=== PATIENT | male | born 1975 | race Caucasian/White ===

== ENCOUNTER 2020-03-22 13:47 | Emergency (ER) | payer BC, OTHER, SELFPAY ==
[2020-03-22 13:54] VITALS: BP 144/84; PULSE 108; RESP 18; TEMP 36.7; O2SAT 97
--- NOTE | 2020-03-22 14:23 | ED.BACK ---
HPI - Back Pain/Injury General Chief Complaint: Back Pain/Injury Stated Complaint: low back pain Time Seen by Provider: 03/22/20 14:19 Source: RN notes reviewed History of Present Illness HPI Narrative: Patient presents emergency department from home for back pain. Patient states that 2 days ago he was lifting sheets of plywood. He states that he noted mild back pain progressively worsened while he was lifting the sheets of plywood. He denies any direct trauma or injury. States that since that time he is had progressively worsening pain in the bilateral lower back with radiation to the bilateral legs. He denies any fever chills abdominal pain numbness or tingling in the extremities bowel or bladder incontinence or any other symptoms. Last took naproxen this morning for the symptoms at 5 AM this morning. Patient states he does have a history of low back pain Related Data Allergies Allergy/AdvReac Type Severity Reaction Status Date / Time No Known Allergies Allergy Verified 03/22/20 13:57 Review of Systems Review of Systems: Narrative: Gen.: Denies fevers or chills ENT: Denies congestion Respiratory: Denies shortness of breath or cough CV: Denies chest pain or palpitations GI: Denies abdominal pain nausea, emesis or diarrhea denies incontinence Musculoskeletal: See HPI Neuro: Denies numbness, tingling, weakness or focal weakness Skin: Denies rash Except as documented, all other systems reviewed and negative [facility] Past Medical History Medical History (Updated 03/22/20 @ 14:25 by Kenny Barrera DO) Depression Social History Social History (Updated 03/22/20 @ 14:25 by Kenny Barrera DO) Smoking packs per day: 1 Smoking cigarettes per day: 20.0 Exam Narrative: Exam Narrative: APPEARANCE: No acute distress, nontoxic, resting in bed Eyes: EOMI HEENT: Normocephalic, atraumatic, CV: Regular rate and rhythm without murmur RESPIRATORY: No respiratory distress. Clear to auscultation bilaterally. Abdomen: Soft and nontender, no rebound or guarding MUSCULOSKELETAl: Moves all extremities, no clubbing cyanosis or edema Back: No midline lumbar tenderness to palpation or step-off, tender to palpation over bilateral paravertebral muscles L3-5 , pain increased with forward flexion NEURO: Awake and alert. Following commands, speech normal, no focal deficits, muscle strength 5 out of 5 bilateral lower extremities, bilateral patellar reflex 2+ SKIN:: Warm, dry. Normal Color no rash or lesions Course Course Emergency Course: Discussed with patient results of workup and diagnosis. Discussed need for follow-up with primary care, proper use of medication, and reasons to return to the emergency department. Patient understands and agrees to current treatment plan Vital Signs Vital signs: Vital Signs Temperature 98.1 F 03/22/20 13:54 Pulse Rate 108 H 03/22/20 13:54 Respiratory Rate 18 03/22/20 13:54 Blood Pressure 144/84 H 03/22/20 13:54 Pulse Oximetry 97 03/22/20 13:54 Temperature 98.1 F 03/22/20 13:54 Pulse Rate 108 H 03/22/20 13:54 Respiratory Rate 18 03/22/20 13:54 Blood Pressure 144/84 H 03/22/20 13:54 Pulse Oximetry 97 03/22/20 13:54 MDM - Back Pain/Injury MDM Narrative Medical decision making narrative: Patient?s pain is positional and localized to back without signs of cord compression or cauda equina. Normal nuerologic exams. No fever noted and no significant risk factors for osteomyelitis or spinal epidural abscess. No symptoms or signs to suggest pain is referred from abdominal or source. There are no pulsatile masses to exam. Patient ambulates with a steady gait and is felt to be up reasonable candidate for continued outpatient management Discharge Plan Discharge Clinical Impression: Low back pain Patient Disposition: Home, Self-Care Condition: Stable Instructions: Antibiotic Form, Acute Low Back Pain (ED) Additional Instructions: Return for increasing
[2020-03-22] MEDS: CYCLOBENZAPRINE HCL 10 MG TABLET PO (14:32)
[2020-03-22 14:46] VITALS: BP 136/92; PULSE 90; RESP 18; TEMP 36.6; O2SAT 98
== END 2020-03-22 14:48 | disposition home or self-care (01) ==
LOC: ANHED 14:35
PROVIDERS: Emergency Provider Emergency Medicine; PCP Nurse Practitioner Family
DX: M54.5 Low back pain (principal); F17.210 Nicotine dependence, cigarettes, uncomplicated
CPT/HCPCS: 99283; A9270

== ENCOUNTER 2020-11-01 19:56 | Emergency (ER) | payer BC, MEDICAID, SELFPAY ==
[2020-11-01 19:58] VITALS: BP 150/76; PULSE 77; RESP 20; TEMP 37; O2SAT 99
--- NOTE | 2020-11-01 22:30 | ED.BACK ---
HPI - Back Pain/Injury General Chief Complaint: Back Pain/Injury Stated Complaint: back pain Time Seen by Provider: 11/01/20 22:25 Source: patient Mode of arrival: ambulatory Limitations: no limitations History of Present Illness HPI Narrative: Patient is a 45-year-old male complaining of left lower back pain rating to his right lower extremity, 8 out of 10, sharp, worse with palpation and movement, started approximately 1 and 1/2 to 2 weeks ago. Patient admits to bending and lifting heavy objects at work. Denies any injury. Patient states that he has a history of back pain. Patient denies any chest pain, shortness of breath, abdominal pain, nausea, vomiting, diaphoresis, fever, chills, weakness, or incontinence. Related Data Allergies Allergy/AdvReac Type Severity Reaction Status Date / Time No Known Allergies Allergy Verified 03/22/20 13:57 Review of Systems Review of Systems: All systems reviewed & are unremarkable except as noted in HPI and below Constitutional: Constitutional: Denies body ache(s), Denies chills, Denies excessive sweating, Denies fatigue, Denies fever(s), Denies headache(s), Denies lethargy, Denies malaise, Denies weakness and Denies weight loss Eyes: Eyes: Denies blurry vision, Denies change in vision and Denies loss of vision ENT: Denies dizziness, Denies ear discharge, Denies headache(s), Denies lip swelling, Denies epistaxis, Denies nasal congestion, Denies neck pain, Denies throat swelling and Denies tongue swelling Cardiovascular: Cardiovascular: Denies chest pain, Denies chest pain at rest, Denies chest pain with activity, Denies diaphoresis, Denies rapid heart rate, Denies edema, Denies irregular heart rhythm, Denies lightheadedness, Denies palpitations, Denies dyspnea and Denies dyspnea on exertion Respiratory: Respiratory: Denies chest congestion, Denies cough, Denies hemoptysis, Denies dyspnea and Denies dyspnea on exertion Gastrointestinal: Gastrointestinal: Denies abdominal pain, Denies melena, Denies hematochezia, Denies diarrhea, Denies nausea, Denies vomiting and Denies hematemesis Musculoskeletal: Musculoskeletal: Denies abnormal gait, Denies deformity, Denies joint swelling, Denies limited range of motion, Denies neck pain and Denies numbness Neurologic: Denies Abnormal speech present, Denies abnormal gait, Denies confusion, Denies dizziness, Denies headache(s), Denies focal weakness, Denies loss of vision, Denies numbness, Denies Other visual disturbances, Denies Sensory deficit (Neuro) and Denies weakness Psychiatric: Psychiatric: Denies confusion, Denies depression, Denies auditory hallucinations, Denies homicidal ideation and Denies suicidal ideation Endocrine: Endocrine: Denies cold intolerance, Denies excessive sweating, Denies fatigue, Denies heat intolerance and Denies palpitations Hematologic/Lymphatic: Hematologic/Lymphatic: Denies easy bleeding and Denies easy bruising Allergic/Immunologic: Allergic/Immunologic: Denies lip swelling, Denies throat swelling and Denies tongue swelling PMFSH Past Medical History Medical History Depression Social History Social History Smoking packs per day: 1 Smoking cigarettes per day: 20.0 Comments Past medical history: None Family history noncontributory Social history: No EtOH or drug use Exam Const: General: cooperative, healthy appearing, comfortable, no acute distress, well developed, alert and awake; No confusion Orientation/consciousness: oriented to person, oriented to place, oriented to time, patient oriented x3 and No confusion Limitations: no limitations HENMT: Head: normal to inspection, normocephalic and atraumatic Ears: hearing grossly normal bilaterally, TM normal on the right and TM normal on the left General nose exam: Normal external nose present, Normal nares present and No nasal discharge present Face an
[2020-11-01] MEDS: HYDROcodone/acetaminophen (*CRX) 5-325 MG TABLET 1 TAB PO (22:42)
[2020-11-01] MEDS: methylPREDNISolone SOD SUCC 125 MG VIAL 60 MG IM (22:42)
[2020-11-01] MEDS: CYCLOBENZAPRINE HCL 10 MG TABLET PO (22:42)
[2020-11-01] MEDS: KETOROLAC 30 MG/ML VIAL (*BKC) IM (22:42)
[2020-11-01 23:43] VITALS: BP 142/85; PULSE 78; RESP 18; TEMP 36.4; O2SAT 98
== END 2020-11-01 23:44 | disposition home or self-care (01) ==
LOC: ANHED 22:38
PROVIDERS: Emergency Provider Emergency Medicine; PCP Nurse Practitioner Family
DX: M54.42 Lumbago with sciatica, left side (principal); F17.210 Nicotine dependence, cigarettes, uncomplicated
CPT/HCPCS: 96372; 99284; A9270; J1885; J2930

== ENCOUNTER 2023-12-03 18:01 | Emergency (ER) | payer BC, SELFPAY ==
[2023-12-03 18:02] VITALS: BP 150/82; PULSE 119; RESP 18; TEMP 36.5; O2SAT 100
--- NOTE | 2023-12-03 18:11 | ED.BACK ---
HPI - Back Pain/Injury General Chief Complaint: Back Pain/Injury Stated Complaint: lower back pain Time Seen by Provider: 12/03/23 18:11 Source: patient Mode of arrival: ambulatory Limitations: no limitations History of Present Illness HPI Narrative: Jhony is a 48-year-old male patient presenting to the ER today with complaints of right-sided low back pain with radiation of pain in his right anterior thigh. He reports this has been going on for a few days now. Was seen at the [facility] urgent [facility] and given a shot of steroid and given prescription for muscle relaxers. Is needing a work note for today. Rates the pain currently an 8/10. States the pain is over the right low back/SI joint. Related Data Allergies Allergy/AdvReac Type Severity Reaction Status Date / Time No Known Allergies Allergy Verified 03/22/20 13:57 Review of Systems Review of Systems: Pertinent positives per HPI. Patient denies any fever, chills, rash, headache, visual changes, dizziness, cough, runny nose, sore throat, shortness of breath, chest pain, palpitations, nausea, vomiting, diarrhea, constipation, abdominal pain, or any urinary issues. [facility] Past Medical History Medical History Depression Social History Social History Smoking packs per day: 1 Smoking cigarettes per day: 20.0 Comments At the time of my signature, I reviewed and agree with the nursing past medical, surgical, social, and family history. There is no relevant family history pertinent to the patient complaint. Exam Narrative: General: Well-developed, well nourished, in no apparent distress Head: Normocephalic, atraumatic. Cardio: Regular rate and rhythm, s1 and s2 normal, no murmur appreciated. Resp: Clear to auscultation bilaterally, no rhonchi, rales, wheezing or rubs. Musculoskeletal: No deformity, tender to palpation over the right sided lumbar spine and right SI joint, pain with raising right leg, positive straight leg test of the right leg at approximately 60 ?, negative foot drop, patellar reflex 2+, grossly normal range of motion, muscle strength strong and equal, peripheral pulse strong, no edema, no cyanosis, antalgia gait and station Course Course Emergency Course: Portions of this record may have been created with voice recognition software. Vital Signs Vital signs: Vital Signs Temperature 36.5 C 12/03/23 18:02 Pulse Rate 119 H 12/03/23 18:02 Respiratory Rate 18 12/03/23 18:02 Blood Pressure 150/82 H 12/03/23 18:02 Pulse Oximetry 100 12/03/23 18:02 Oxygen Delivery Room Air 12/03/23 18:02 Temperature 36.5 C 12/03/23 18:02 Pulse Rate 119 H 12/03/23 18:02 Respiratory Rate 18 12/03/23 18:02 Blood Pressure 150/82 H 12/03/23 18:02 Pulse Oximetry 100 12/03/23 18:02 Oxygen Delivery Room Air 12/03/23 18:02 Vital signs reviewed MDM - Back Pain/Injury MDM Narrative Medical decision making narrative: At the time of visit patient is resting comfortably on the exam table. Patient appears to be nontoxic. Plan: I suspect patient has low back pain with right sciatica. Prescription for Medrol Dosepak was sent to the pharmacy and patient can continue taking the Flexeril. Work note was given. Supportive measures were discussed with the patient and they voiced understanding discharge instructions and agrees to treatment plan. Return precautions reviewed Differential Diagnosis Differential diagnosis: Likely lumbar radiculopathy, sciatica, strain of lumbar region, discitis and other (SI joint dysfunction) Discharge Plan Discharge Clinical Impression: Acute right-sided low back pain with sciatica Qualifiers: Sciatica laterality: sciatica of right side Qualified Code(s): M54.41 - Lumbago with sciatica, right side Patient Disposition: Home, Self-Care Condition: Stable Instructions: Antibi
[2023-12-03] MEDS: KETOROLAC (*BKC) 60 MG/2 ML VIAL IM (18:16)
== END 2023-12-03 18:36 | disposition home or self-care (01) ==
PROVIDERS: Emergency Provider Nurse Practitioner Family
DX: M54.41 Lumbago with sciatica, right side (principal); F17.210 Nicotine dependence, cigarettes, uncomplicated
CPT/HCPCS: 96372; 99283; J1885

== ENCOUNTER 2025-05-02 01:42 | Day surgery (SDC) | payer BC, SELFPAY ==
[2025-04-26 09:25] VITALS: BMI 35.6
--- OUTSIDE RECORDS SUMMARY | 2025-05-02 01:45 | XMS_ITS | Patient Health Record ---
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 Screening reviewed and consent signed. Patient tolerated well. COVID-19 Moderna 2nd IM Intramuscular 11/07/2020 Administered Plan Of Treatment No Information Insurance Providers Payer Name Payer Address Payer Phone Subscriber Number Group Number Insured Name Patient Relationship to Insured Coverage Start Date Coverage End Date [facility] [address] [place] [address] [id number] Jhony Marinelli Self - patient is the insured 1
[2025-05-02 09:41] VITALS: BP 156/82; PULSE 92; RESP 20; TEMP 36.3; O2SAT 97
[2025-05-02] MEDS: LACTATED RINGERS 1,000 ML 150 ML IV CONT (09:53)
--- NOTE | 2025-05-02 10:02 | WPDANESEPPF ---
Anes - Initial Pre Proc Eval Procedure: Operation Date: 05/02/25 11:00 Proposed Procedures p Diagnostic Colonoscopy - Slim Estrada MD Date/Time: 05/02/25 10:02 Surgeon: Slim Estrada MD Pre Op Diagnosis: Diarrhea, unspecified Patient Data Age: 50 Gender: M Height: 1.83 m Weight: 116.4 kg Last Vital Signs Temp 36.3 C L 05/02/25 09:41 Pulse 92 05/02/25 09:41 Resp 20 05/02/25 09:41 BP 156/82 H 05/02/25 09:41 Pulse Ox 97 05/02/25 09:41 O2 Del Method Room Air 05/02/25 09:41 Allergies Allergy/AdvReac Type Severity Reaction Status Date / Time No Known Allergies Allergy Verified 05/02/25 09:40 Home Medications ?Medication ?Instructions ?Recorded ?Confirmed ?Type ibuprofen 600 mg tablet (IBU) 600 mg PO Q6H PRN pain #20 tabs 03/22/20 04/26/25 Rx Patient hx anesthesia problems: none Family hx anesthesia problems: none Results Review: All pre-operative results and documents have been reviewed as part of the pre-operative evaluation. [facility] Past Medical History Medical History (Updated 02/12/25 @ 15:52 by MAURY Slaughter) Tobacco use HLD (hyperlipidemia) Obesity (BMI 30-39.9) Alcohol use Family history of celiac disease Elevated LFTs Fatty liver Diarrhea Encounter for screening colonoscopy Depression Social History Social History (Updated 05/02/25 @ 10:10 by Arnold Amos DO) Smoking packs per day: 1 Smoking cigarettes per day: 20.0 Years smoked: 30 Smoking pack-years: 30.00 Smoking status: Current every day smoker Tobacco type: cigarettes Alcohol intake: current Alcohol use details: 6 beer/day Substance use type: does not use Anes - Eval Final PreProcedure Day of Procedure 05/02/25 10:02 Patient weight: obese Heart: regular rate and rhythm Lungs: clear to auscultation Airway: Mallampati scale class II Neurological: alert and oriented Last oral intake: >/= 8 hours ASA classification: III Emergent: no Anesthetic plan: proceed Anesthesia type and monitoring: general GIVS and standard monitoring Results Review: All pre-operative results and documents have been reviewed as part of the pre-operative evaluation. Informed Consent: The patient's anesthetic plan and its attendant risks and benefits were discussed with the patient/family/POA. Questions were solicited and answers provided to the satisfaction of the patient/family/POA.
--- NOTE | 2025-05-02 10:34 | P.HP_ITS ---
History of Present Illness History of Present Illness Consent: Risks, benefits, and alternatives have been discussed and questions answered. Patient agrees to proceed with procedure. Chief complaint: Diarrhea, unspecified Narrative: Jhony Marinelli is a 50 year old male here for first colonoscopy, also history of loose stool Review of Systems Review of Systems: All systems reviewed & are unremarkable except as noted in HPI and below PMFSH Past Medical History Medical History (Updated 02/12/25 @ 15:52 by LUKAS SlaughterN-C) Tobacco use HLD (hyperlipidemia) Obesity (BMI 30-39.9) Alcohol use Family history of celiac disease Elevated LFTs Fatty liver Diarrhea Encounter for screening colonoscopy Depression Social History Social History (Updated 05/02/25 @ 10:10 by Arnold Amos, ) Smoking packs per day: 1 Smoking cigarettes per day: 20.0 Years smoked: 30 Smoking pack-years: 30.00 Smoking status: Current every day smoker Tobacco type: cigarettes Alcohol intake: current Alcohol use details: 6 beer/day Substance use type: does not use Meds Home Medications and Allergies Home Medications ?Medication ?Instructions ?Recorded ?Confirmed ?Type ibuprofen 600 mg tablet (IBU) 600 mg PO Q6H PRN pain # 20 tabs 03/22/20 04/26/25 Rx Allergies Allergy/AdvReac Type Severity Reaction Status Date / Time No Known Allergies Allergy Verified 05/02/25 09:40 Vital Signs Vital Signs - 24 hr 05/02/25 09:41 Temperature 97.4 F L Pulse Rate 92 Respiratory Rate 20 Blood Pressure 156/82 H Pulse Oximetry 97 Oxygen Delivery Room Air Exam Const: General: comfortable and no acute distress HENMT: Face/Nose/Sinus: Normal nares present Eyes: General: appearance normal, both eyes and all related structures Neck: Neck: no JVD Resp: Auscultation: clear to auscultation bilaterally Cardio: Rate: regular rate Rhythm: regular rhythm GI: Inspection: non-distended GI Palp: Yes Soft to palpation Skin: General skin exam: normal color Neuro: Speech: normal speech Extrem: General: normal to inspection Psych: Mental Status: mental status grossly normal Assessment and Plan Assessment and plan (1) Diarrhea: Code(s): R19.7 - Diarrhea, unspecified Status: Acute (2) Encounter for screening colonoscopy: Code(s): Z12.11 - Encounter for screening for malignant neoplasm of colon Status: Acute Assessment and Plan: colonoscopy
--- NOTE | 2025-05-02 10:37 | S_PTH ---
PATIENT: Jhony Marinelli LOC: [facility]#:[id number] AGE/SX: 50/M ROOM: RE05/02/[address]: Slim Estrada MD : 1975 BED: DIS: 05/02/2025 SPEC #: [id number] RECD: 05/02/25 10:52 STATUS: FAVIOLA REArabella #: [id number] ANURAG: 05/02/25 10:[address]: Slim Estrada DEPT: [facility] Surgical RECD BY: Jane Freire ENTERED: 05/02/25 10:52 SP TYPE: Surgical OTHR DR: Elier TranMD Tissues: A - Colon Biopsy B - Colon Polypectomy Procedures: Hematoxylin and Eosin Stain Gross and Microscopic Level 4
[2025-05-02 10:47] VITALS: BP 133/79; PULSE 87; RESP 21; O2SAT 95
[2025-05-02 10:57] VITALS: PULSE 80; RESP 18; O2SAT 98
== END 2025-05-02 11:10 | disposition home or self-care (01) ==
PROVIDERS: PCP Internal Medicine; Referring Provider Nurse Practitioner Family; Visit Provider Internal Medicine Gastroenterology
PROC: 0DJD8ZZ Inspection of Lower Intestinal Tract, Via Natural or Artificial Opening Endoscopic (ICD-10-PCS; CPT 45378; principal; 2025-05-02 11:00)
DX: R19.7 Diarrhea, unspecified (principal); D12.4 Benign neoplasm of descending colon; K57.30 Diverticulosis of large intestine without perforation or abscess without bleeding; K64.8 Other hemorrhoids; F17.210 Nicotine dependence, cigarettes, uncomplicated; E66.9 Obesity, unspecified; Z68.34 Body mass index [BMI] 34.0-34.9, adult
CPT/HCPCS: 45385; 45380; 88305; J2704; J7120

== ENCOUNTER 2025-08-28 00:39 | Emergency (ER) | payer BC, SELFPAY ==
[2025-08-28] VITALS (9 sets, daily range): BP systolic 137–201; BP diastolic 80–99; PULSE 105–118; RESP 17–23; TEMP 37.1–37.4; O2SAT 93–97
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
--- OUTSIDE RECORDS SUMMARY | 2025-08-28 00:42 | XMS_ITS | Patient Health Record ---
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 Screening reviewed and consent signed. Patient tolerated well. Social History Sex Observation Social History Observation Description Sex Observation Male Plan Of Treatment No Information Insurance Providers Payer Name Payer Address Payer Phone Subscriber Number Group Number Insured Name Patient Relationship to Insured Coverage Start Date Coverage End Date [facility] [address] [place] [address] [id number] Jhony Marinelli Self - patient is the insured
--- OUTSIDE RECORDS SUMMARY | 2025-08-28 00:42 | XMS_ITS | Data Portability ---
Author Organization [facility], Main Office Address [address] [place] [address] Assessment No assessment recorded. Plan of Treatment Reminders Order Date Submit Date Provider Last Modified By Organization Details Last Modified Time Details Appointments None recorded. Lab testosteron e, free + total, serum 2022 023 [facility] (Lab), [address] [place], [address], 3 09:52:30 PSA, serum or plasma 2022 023 [facility] (Lab), [address] [place], [address], 3 05:05:32 CMP, serum or plasma [address] (Lab), [address] [place], [address], 3 09:04:47 testosteron e, free + total, serum [address] (Lab), [address] [place], [address], 3 09:04:29 vitamin B12 + folate, serum or blood [address] (Lab), [address] [place], [address], 3 09:04:29 magnesium, serum or plasma 2022 023 [email or web address] [facility] (Lab), [address] [place], [address], 3 09:04:29 vitamin D, 25-hydroxy, total, serum 2022 023 [email or web address] [facility] (Lab), [address] [place], [address], 3 09:04:29 CBC 2022 023 [email or web address] [facility] (Lab), [address] [place], [address], 3 09:04:30 HbA1c (hemoglobin A1c), blood 2022 023 [email or web address] [facility] (Lab), [address] [place], [address], 3 08:07:42 lipid panel, serum [email or web address] (Lab), [address] [place], [address], 3 17:28:54 TSH, serum or plasma [email or web address] [place] [address] (Lab), [address] [place], [address], 3 17:29:08 CBC [email or web address] [place] [address] (Lab), [address] [place], [address], 3 17:29:26 CMP, serum or plasma [email or web address] [place] [address] (Lab), [address] [place], [address], 3 17:29:39 Referral sleep medicine referral 2022 023 [email or web address] 3 Severino Lambert MD, [address] [place], [address], 3 10:22:47 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 Thank you 2022 023 GILLIAN Plunkett DPM, [address] [facility], [place], [address], 3 12:18:24 Procedures None recorded. Surgeries None recorded. Imaging None recorded. Medication Orders cholecalcif chely (vitamin D3) 1,250 mcg (50,000 unit) capsule 2022 023 [facility] #13883, [address] [facility], [place], [place], [id number], 3 16:28:45 varenicline tartrate 0.5 mg (11)-1 mg (42) tablets in a dose pack 2022 023 [facility] #85868, [address], [place], [place], [id number], 3 14:39:42 prednisone 20 mg tablet [address] [place] [address] [facility] #67024, [address], [place], [place], [id number], 3 16:10:29 meloxicam 15 mg tablet 2022 023 [facility] #10725, [address] , [place], [place], [id number], 3 16:33:58 prednisone 20 mg tablet 2022 [email or web address] [place] [address] [id number], [address], [place], [place], [id number], 16:10:29 Patient TargetsNo targets recorded. 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 Thank you Referring Physician: Cirilo Walker [facility], Encounter Date: 11/24/2022 Sleep Medicine Referral for Snoring Referring Physician: Cirilo Walker [facility], Encounter Date: 04/07/2023 Results Created Date Observation Date Name Description Value Unit Range Abnormal Flag Note LastModifiedBy Organization Detail LastModifiedTime 11/25/1911/24/2022 CBC W/O DIFFE RENTI AL white blood cells 7.3 x10'3 /uL 4.2-10 .8 Not Available [facility] (Lab) [address] [place], [address], 11/24/2022 20:24:04 11/25/19 23 11/24/2022 CBC W/O DIFFE RENTI AL red blood cells 5.28 x10'6 /uL 4.10-5 .80 Not Available [facility] (Lab) [address] [place], [address], 11/24/2022 20:24:04 11/25/19 23 11/24/2022 CBC W/O DIFFE RENTI AL hemoglobin 17.2 g/dL 13.2-1 7.0 high Not Available [facility] (Lab) [address] [place], [address], 11/24/2022 20:24:04 11/25/19 23 11/24/2022 CBC W/O DIFFE RENTI AL hematocrit 50.2 % 39.3-5 0.0 high Not Available [facility] (Lab) [address] [place], [address], 11/24/2022 20:24:04 11/25/19 23 11/24/2022 CBC W/O DIFFE RENTI AL mean red cell volume 95.1 fL 80.0-9 7.0 Not Available [facility] (Lab) [address] [place], [address], 11/24/2022 20:24:04 11/25/19 23 11/24/2022 CBC W/O DIFFE RENTI AL mean red cell hemoglobin 32.6 pg 27.0-3 3.0 Not Available [facility] (Lab) [address] [place], [address], 11/24/2022 20:24:04 11/25/19 23 11/24/2022 CBC W/O DIFFE RENTI AL mean RBC HGB concentratio n 34.3 g/dL 31.0-3 6.0 Not Available [facility] (Lab) [address] [place], [address], 11/24/2022 20:24:04 11/25/19 23 11/24/2022 CBC W/O DIFFE RENTI AL red cell distribution width 13.0 % 11.8-1 5.5 Not Available [facility] (Lab) [address] [place], [address], 11/24/2022 20:24:04 11/25/19 23 11/24/2022 CBC W/O DIFFE RENTI AL platelets 196 x10'3 /uL 150-40 0 Not Available [facility] (Lab) [address] [place], [address], 11/24/2022 20:24:04 11/25/19 23 11/24/2022 CBC W/O DIFFE RENTI AL mean platelet volume 10.7 fL 9.0-12 .4 Not Available [facility] (Lab) [address] [place], [address], 11/24/2022 20:24:04 11/25/19 23 11/24/2022 LIPID PANEL cholesterol 220 mg/dL 140-19 9 high NIH DENISSE NSUS RECOM MENDA TION FOR TINO STERO L: ADULT CHILD LOW RISK: <200 <170 BORDE RLINE : <200- 239 ----- HIGH RISK: >240 >200 Not Available [facility] (Lab) [address] [place], [address], 11/24/2022 20:57:15 11/25/19 23 11/24/2022 LIPID PANEL triglyceride s 362 mg/dL 0-150 high NIH DENISSE NSUS REPOR T RECOM MENDA TION FOR TRIGL YCERI EBEN: ADULT CHILD LOW RISK: <150 ----- BODER LINE: 150-1 99 ----- HIGH RISK: >200 ----- Not Available [facility] (Lab) [address] [place] [address], [address], 11/24/2022 20:57:15 11/25/19 23 11/24/2022 LIPID PANEL HDL cholesterol 35 mg/dL 40- low Not Available [facility] (Lab) [address] [place] [address], [address], 11/24/2022 20:57:15 11/25/19 23 11/24/2022 LIPID PANEL LDL cholesterol, calculated 113 mg/dL 0-130 NIH DENISSE NSUS REPOR T RECOM MENDA TIONS FOR LDL: ADULT CHILD LOW RISK <130 <110 (OPTI MAL LDL) <100 ----- BORDE RLINE : 130-1 59 ----- HIGH RISK: >160 >130 A TRIGL YCERI DE RESUL T >400 INVAL IDATE S THE CALCU LATIO N FOR LDL FRACT IONAT ION - THE LDL RESUL T WILL NOT BE REPOR JARAD. Not Available [facility] (Lab) [address] [place], [address], 11/24/2022 20:57:15 11/25/19 23 11/24/2022 COMPR EHENS RAFI METAB OLIC PANEL sodium 143 mmol/ L 137-14 5 Not Available [facility] (Lab) [address] [place], [address], 11/24/2022 20:57:26 11/25/19 23 11/24/2022 COMPR EHENS RAFI METAB OLIC PANEL potassium 4.4 mmol/ L 3.5-5. 1 Not Available [facility] (Lab) [address] [place], [address], 11/24/2022 20:57:26 11/25/19 23 11/24/2022 COMPR EHENS RAFI METAB OLIC PANEL chloride 110 mmol/ L 98-107 high Not Available [facility] (Lab) [address] [place], [address], 11/24/2022 20:57:26 11/25/19 23 11/24/2022 COMPR EHENS RAFI METAB OLIC PANEL carbon dioxide 24 mmol/ L 22-30 Not Available [facility] (Lab) [address] [place], [address], 11/24/2022 20:57:26 11/25/19 23 11/24/2022 COMPR EHENS RAFI METAB OLIC PANEL anion gap 13.4 mmol/ L 14-22 low Not Available [facility] (Lab) [address] [place], [address], 11/24/2022 20:57:26 11/25/19 23 11/24/2022 COMPR EHENS RAFI METAB OLIC PANEL glucose 109 mg/dL 70-99 high Not Available [facility] (Lab) [address] [place], [address], 11/24/2022 20:57:26 11/25/19 23 11/24/2022 COMPR EHENS RAFI METAB OLIC PANEL BUN 15 mg/dL 8-19 Not Available [facility] (Lab) [address] [place], [address], 11/24/2022 20:57:26 11/25/19 23 11/24/2022 COMPR EHENS RAFI METAB OLIC PANEL creatinine 0.85 mg/dL 0.66-1 .25 Not Available [facility] (Lab) [address] [place], [address], 11/24/2022 20:57:26 11/25/19 23 11/24/2022 COMPR EHENS RAFI METAB OLIC PANEL GFR >60 Refer ence Range : [place] GFR Healt hy Adult : >60 mL/mi n/1.7 3 m2 Chron ic Kidne y Disea se: 15-60 mL/mi n/1.7 3 m2 Kidne y Failu re: <15/m L/min /1.73 m2 www.n iddk. nih.g ov The MDRD study equat ion has not been valid ated in child adam <18 years of age; pregn ant women ; the elder ly >85 years of age; or in some racia l or ethni c subgr oups, such as dc nics. Outsi de the valid ated anirudh eters , estim ated GFR is less accur ate, requi ring clini mark judgm ent on a case- by-ca se basis . Clini mark inter preta tion for other races and ages must be made by the clini lauren. The MDRD study equat ion has not been valid ated for the evalu ation of serum creat inine relat ed to nutri danny l statu s or medic ation usage . For perso ns <18 years of age, a pedia tric GFR calcu lator is avail able on the F websi te: https ://lee w.carlos fangy.o rg/pr ofess ional s/kdo qi/gf r_cal culat or Not Available [facility] (Lab) [address] [place], [address], 11/24/2022 20:57:26 11/25/19 23 11/24/2022 COMPR EHENS RAFI METAB OLIC PANEL alkaline phosphatase 89 U/L 38-126 Not Available [facility] (Lab) [address] [place], [address], 11/24/2022 20:57:26 11/25/19 23 11/24/2022 COMPR EHENS RAFI METAB OLIC PANEL alanine aminotransfe rase 51 U/L 0-50 high Not Available [facility] (Lab) [address] [place], [address], 11/24/2022 20:57:26 11/25/19 23 11/24/2022 COMPR EHENS RAFI METAB OLIC PANEL aspartate aminotransfe rase 55 U/L 15-46 high Not Available [facility] (Lab) [address] [place], [address], 11/24/2022 20:57:26 11/25/19 23 11/24/2022 COMPR EHENS RAFI METAB OLIC PANEL bilirubin, total 0.40 mg/dL 0.20-1 .30 Not Available [facility] (Lab) [address] [place], [address], 11/24/2022 20:57:26 11/25/19 23 11/24/2022 COMPR EHENS RAFI METAB OLIC PANEL calcium 9.3 mg/dL 8.4-10 .2 Not Available [facility] (Lab) [address] [place], [address], 11/24/2022 20:57:26 11/25/19 23 11/24/2022 COMPR EHENS RAFI METAB OLIC PANEL total protein 6.6 g/dL 6.3-8. 2 Not Available [facility] (Lab) [address] [place], [address], 11/24/2022 20:57:26 11/25/19 23 11/24/2022 COMPR EHENS RAFI METAB OLIC PANEL albumin 4.1 g/dL 3.4-5. 0 Not Available [facility] (Lab) [address] [place], [address], 11/24/2022 20:57:26 11/25/19 23 11/24/2022 COMPR EHENS RAFI METAB OLIC PANEL globulin 2.5 g/dL 2.6-4. 2 low Not Available [facility] (Lab) [address] [place], [address], 11/24/2022 20:57:26 11/25/19 23 11/24/2022 COMPR EHENS RAFI METAB OLIC PANEL A/G ratio 1.6 ratio 1.0-2. 0 Not Available [facility] (Lab) [address] [place], [address], 11/24/2022 20:57:26 11/25/19 23 11/24/2022 TSH thyroid-stim ulating hormone 1.390 uIU/m L 0.465- 4.680 Not Available [facility] (Lab) [address] [place], [address], 11/24/2022 21:30:49 11/25/19 23 11/24/2022 HEMOG LOBIN A1C HA1C 5.4 % 4.0-6. 0 Diabe pawan Scree zainab Crite luana: <5.7% Consi stent with absen ce of diabe pawan 5.7-6 .4% Consi stent with incre ased risk for diabe pawan (pred iabet es) >OR=6 .5% Consi stent with diabe pawan REFER ENCE: Diabe pawan Care 2015, 39(Gaspar ppl.1 ):s13 -s22 Not Available [facility] (Lab) [address] [place], [address], 11/24/2022 22:53:43 05/07/2005/07/2023 CBC W/O DIFFE RENTI AL white blood cells 10.3 x10'3 /uL 4.2-10 .8 Not Available [facility] (Lab) [address] [place], [address], 05/07/2023 12:56:43 05/07/20 23 05/07/2023 CBC W/O DIFFE RENTI AL red blood cells 5.59 x10'6 /uL 4.10-5 .80 Not Available [facility] (Lab) [address] [place], [address], 05/07/2023 12:56:43 05/07/2005/07/2023 CBC W/O DIFFE RENTI AL hemoglobin 18.2 g/dL 13.2-1 7.0 high Not Available [facility] (Lab) [address] [place], [address], 05/07/2023 12:56:43 05/07/2005/07/2023 CBC W/O DIFFE RENTI AL hematocrit 54.0 % 39.3-5 0.0 high Not Available [facility] (Lab) [address] [place], [address], 05/07/2023 12:56:43 05/07/2005/07/2023 CBC W/O DIFFE RENTI AL mean red cell volume 96.6 fL 80.0-9 7.0 Not Available [facility] (Lab) [address] [place], [address], 05/07/2023 12:56:43 05/07/2005/07/2023 CBC W/O DIFFE RENTI AL mean red cell hemoglobin 32.6 pg 27.0-3 3.0 Not Available [facility] (Lab) [address] [place], [address], 05/07/2023 12:56:43 05/07/20 23 05/07/2023 CBC W/O DIFFE RENTI AL mean RBC HGB concentratio n 33.7 g/dL 31.0-3 6.0 Not Available [facility] (Lab) [address] [place], [address], 05/07/2023 12:56:43 05/07/20 23 05/07/2023 CBC W/O DIFFE RENTI AL red cell distribution width 12.6 % 11.8-1 5.5 Not Available [facility] (Lab) [address] [place], [address], 05/07/2023 12:56:43 05/07/2005/07/2023 CBC W/O DIFFE RENTI AL platelets 215 x10'3 /uL 150-40 0 Not Available [facility] (Lab) [address] [place], [address], 05/07/2023 12:56:43 05/07/20 23 05/07/2023 CBC W/O DIFFE RENTI AL mean platelet volume 10.3 fL 9.0-12 .4 Not Available [facility] (Lab) [address] [place], [address], 05/07/2023 12:56:43 05/07/20 23 05/07/2023 COMPR EHENS RAFI METAB OLIC PANEL sodium 142 mmol/ L 137-14 5 Not Available [facility] (Lab) [address] [place], [address], 05/07/2023 13:09:39 05/07/20 23 05/07/2023 COMPR EHENS RAFI METAB OLIC PANEL potassium 4.7 mmol/ L 3.5-5. 1 Not Available [facility] (Lab) [address] [place], [address], 05/07/2023 13:09:39 05/07/20 23 05/07/2023 COMPR EHENS RAFI METAB OLIC PANEL chloride 106 mmol/ L 98-107 Not Available [facility] (Lab) [address] [place], [address], 05/07/2023 13:09:39 05/07/20 23 05/07/2023 COMPR EHENS RAFI METAB OLIC PANEL carbon dioxide 28 mmol/ L 22-30 Not Available [facility] (Lab) [address] [place], [address], 05/07/2023 13:09:39 05/07/20 23 05/07/2023 COMPR EHENS RAFI METAB OLIC PANEL anion gap 12.7 mmol/ L 14-22 low Not Available [facility] (Lab) [address] [place], [address], 05/07/2023 13:09:39 05/07/20 23 05/07/2023 COMPR EHENS RAFI METAB OLIC PANEL glucose 127 mg/dL 70-99 high Not Available [facility] (Lab) [address] [place], [address], 05/07/2023 13:09:39 05/07/20 23 05/07/2023 COMPR EHENS RAFI METAB OLIC PANEL BUN 20 mg/dL 8-19 high Not Available [facility] (Lab) [address] [place], [address], 05/07/2023 13:09:39 05/07/20 23 05/07/2023 COMPR EHENS RAFI METAB OLIC PANEL creatinine 0.88 mg/dL 0.66-1 .25 Not Available [facility] (Lab) [address] [place], [address], 05/07/2023 13:09:39 05/07/20 23 05/07/2023 COMPR EHENS RAFI METAB OLIC PANEL GFR >60 Refer ence Range : [place] GFR Healt hy Adult : >60 mL/mi n/1.7 3 m2 Chron ic Kidne y Disea se: 15-60 mL/mi n/1.7 3 m2 Kidne y Failu re: <15/m L/min /1.73 m2 www.n iddk. nih.g ov The MDRD study equat ion has not been valid ated in child adam <18 years of age; pregn ant women ; the elder ly >85 years of age; or in some racia l or ethni c subgr oups, such as Hispa nics. Outsi de the valid ated anirudh eters , estim ated GFR is less accur ate, requi ring clini mark judgm ent on a case- by-ca se basis . Clini mark inter preta tion for other races and ages must be made by the clini lauren. The MDRD study equat ion has not been valid ated for the evalu ation of serum creat inine relat ed to nutri danny l statu s or medic ation usage . For perso ns <18 years of age, a pedia tric GFR calcu lator is avail able on the [facility] websi te: https ://lee w.carlos mcguire.o rg/pr ofess ional s/kdo qi/gf r_cal culat or Not Available [facility] (Lab) [address] [place], [address], 05/07/2023 13:09:39 05/07/20 23 05/07/2023 COMPR EHENS RAFI METAB OLIC PANEL alkaline phosphatase 99 U/L 38-126 Not Available [facility] (Lab) [address] [place], [address], 05/07/2023 13:09:39 05/07/20 23 05/07/2023 COMPR EHENS RAFI METAB OLIC PANEL alanine aminotransfe rase 45 U/L 0-50 Not Available [facility] (Lab) [address] [place], [address], 05/07/2023 13:09:39 05/07/20 23 05/07/2023 COMPR EHENS RAFI METAB OLIC PANEL aspartate aminotransfe rase 86 U/L 15-46 high Not Available [facility] (Lab) [address] [place], [address], 05/07/2023 13:09:39 05/07/20 23 05/07/2023 COMPR EHENS RAFI METAB OLIC PANEL bilirubin, total 0.40 mg/dL 0.20-1 .30 Not Available [facility] (Lab) [address] [place], [address], 05/07/2023 13:09:39 05/07/20 23 05/07/2023 COMPR EHENS RAFI METAB OLIC PANEL calcium 9.7 mg/dL 8.4-10 .2 Not Available [facility] (Lab) [address] [place], [address], 05/07/2023 13:09:39 05/07/20 23 05/07/2023 COMPR EHENS RAFI METAB OLIC PANEL total protein 6.9 g/dL 6.3-8. 2 Not Available [facility] (Lab) [address] [place], [address], 05/07/2023 13:09:39 05/07/20 23 05/07/2023 COMPR EHENS RAFI METAB OLIC PANEL albumin 4.3 g/dL 3.4-5. 0 Not Available [facility] (Lab) [address] [place], [address], 05/07/2023 13:09:39 05/07/20 23 05/07/2023 COMPR EHENS RAFI METAB OLIC PANEL globulin 2.6 g/dL 2.6-4. 2 Not Available [facility] (Lab) [address] [place], [address], 05/07/2023 13:09:39 05/07/20 23 05/07/2023 COMPR EHENS RAFI METAB OLIC PANEL A/G ratio 1.7 ratio 1.0-2. 0 Not Available [facility] (Lab) [address] [place], [address], 05/07/2023 13:09:39 05/07/20 23 05/07/2023 MAGNE SIUM magnesium 2.3 mg/dL 1.6-2. 3 Not Available [facility] (Lab) [address] [place], [address], 05/07/2023 13:09:43 05/07/20 23 05/07/2023 VITAM IN D 25-HY DROXY vd25oh 13.3 NG/mL 30-100 low Vitam in D Statu s: Defic ient: <20 ng/mL Insuf ficie nt: 20-29 ng/mL Suffi cient : 30-10 0 ng/mL Not Available [facility] (Lab) [address] [place], [address], 05/07/2023 13:34:33 05/07/20 23 05/07/2023 VITAM IN B12 (CAITLIN VINCENT ) vb12 437 pg/mL 239-93 1 Not Available [facility] (Lab) [address] [place], [address], 05/07/2023 14:20:11 05/07/20 23 05/07/2023 FOLAT E, SERUM /PLAS MA folate 4.08 NG/mL 2.76-2 0.0 Not Available [facility] (Lab) [address] [place], [address], 05/07/2023 14:20:13 05/07/20 23 05/14/2023 TESTO STERO NE, FREE+ TOTAL LC/MS testosterone , total, lc/MS 259.7 NG/dL 264.0- 916.0 low This [facility] rp LC/MS -MS metho d is curre ntly certi fied by the CDC Hormo ne Stand ardiz ation Progr am (HoSt ). Adult male refer ence inter bharti is based on a popul ation of healt hy nonob moni males (BMI <30) betwe en 19 and 39 years old. Travi son, et.al . JCEM 2017, 102;1 161-1 173. PMID: 50266 103. Not Available [facility] (Lab) [address] [place], [address], 05/14/2023 11:13:29 05/07/20 23 05/14/2023 TESTO STERO NE, FREE+ TOTAL LC/MS testosterone , free 8.47 NG/dL 5.00-2 1.00 Not Available [facility] (Lab) [address] [place], [address], 05/14/2023 11:13:29 05/07/20 23 05/14/2023 TESTO STERO NE, FREE+ TOTAL LC/MS % free testosterone 3.26 % 1.50-4 .20 Perfo rmed at: - [facility] [place] [address] [facility] , [place] [address] [facility] Lab Direc tor: Jeanette kulkarni MD, Phone : [phone] Not Available [facility] (Lab) [address] [place], [address], 05/14/2023 11:13:29 08/12/20 23 08/12/2023 XR, foot No observ ation record ed. [email or web address] [facility] [address] [place], [address], 08/13/2023 13:06:18 12/01/19 24 12/01/2023 XR, sacro iliac joint (s) No observ ation record ed. [email or web address] [facility] [address] [place], [address], 01/14/2024 13:28:06 12/01/19 24 12/01/2023 XR, pelvi s No observ ation record ed. [email or web address] [facility] [address] [place], [address], 01/14/2024 13:28:23 04/0812/05/2024 US, abdom en, limit ed [facility] [address] [place] [address] [phone] Pema young Name: JHONY WATKINS Access ion #: [id number] Sex: M : 1974 2 Locati on: RAD Attend ing Physic faith: YANNICK YAP Orderi ng Physic faith: YANNICK YAP Exam Date: 12/06/19 11:54 AM Exam Name: US ABDOME N SINGLE ORGAN Admitt ing Diagno sis(es ): RADIOL OGY REPORT - FINAL EXAM: US ABDOME N SINGLE ORGAN HISTOR Y: elevat ed liver enzyme s 49-yea r-old male with elevat ed LFTs. COMPAR SHAINA: None availa ble. TECHNI QUE: Right upper quadra nt ultras ound was perfor med. FINDIN GS: No gallst ones, gallbl adder wall thicke zainab, or perich olecys tic free fluid. The patien t was not tender to transd ucer pressu re over the gallbl adder. No intrah epatic biliar y ductal dilata tion or liver mass. The liver is somewh at echoge zohra and diffic ult to penetr ate sonogr aphica lly. The liver measur es 22 cm longit udinal . There is hepato petal portal venous color Dopple r flow. The common duct measur es 5.6 mm in diamet er. The pancre as and abdomi nal aorta are Page 1 of 2 [facility] Pema young Name: JHONY WATKINS Access ion #: [id number] Sex: M : 1974 2 Exam Date: 12/06/19 11:54 AM Exam Name: US ABDOME N SINGLE ORGAN Admitt ing Diagno sis(es ): not well visual ized sonogr aphica lly, possib ly due to overly ing bowel gas. The intrah epatic portio n of the IVC is patent . The right kidney measur es 10.1 cm in length and is normal in appear ance. IMPRES ABDIFATAH: 1. Hepato megaly and possib le hepati c steato sis. 2. Otherw ise unrema rkable right upper quadra nt ultras ound. Create d and electr onical ly signed by: Mt celestin MD Signed Date: 12/06/19 3:14 PM (CT) Dictat ed by: Mt celestin MD (CT) (CT) Page 2 of 2 [email or web address] [facility] (Imaging) [address], [place], [address], 06/13/2025 09:57:48 Result Notes None recorded. Problems Name Problem SNOMED Code Status Onset Date Resolution Date Notes Provider Name and Address Organization Details Recorded Time Mixed anxiety and depressive disorder 334959645 Active 2019 Not Available [facility] 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 3 22:05:22 Plantar fasciitis of left foot 5571141491335 9101 Active 2022 KENNETH James [address], [place], [place], [address] , [employer] 3 16:19:33 Hyperlipid emia 80680740 Active 2022 KENNETH James [address], [address], [place], [address] , [employer] 3 16:17:41 Liver function tests outside reference range 418148177 Active 2022 KENNETH James [address], [address], [place], [address] , [employer] 3 16:19:18 Cigarette smoker 51997170 Active 2022 KENNETH James [address], [address], [place], [address] , [employer] 3 14:31:24 Fatigue 54013348 Active 2022 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 Walker 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 [address], [address], [place], [address] , [facility] [employer] [facility] 3 14:31:43 Snoring 26448765 Active 2022 Cirilo Walker 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 [address], [address], [place], [address] , [facility] [employer] [facility] 3 14:35:40 Vitamin D deficiency 33905827 Active 2022 SARA Bain [address], [address], [place], [address] , [facility] [employer] [facility] 3 16:19:33 Testostero ne level below reference range 440224646 Active 2022 SARA Bain [address], [address], [place], [address] , [facility] [employer] [facility] 3 16:24:10 Elevated blood-pres sure reading without diagnosis of hypertensi on 126979743 Active 2022 SARA Bain [address], [address], [place], [address] , [facility] [employer] [facility] 3 17:08:42 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 Procedures Surgical History Date Name Laterality Status Provider Name and Address Organization Details Recorded Time Cataract Surgery completed ELIZABET Barreto [facility] 04/07/2023 14:09:28 Tonsillectomy completed Miriam Bahena RN [facility] 04/07/2023 14:09:34 Imaging Results None recorded. Procedure Notes None recorded. Medical Equipment None Reported. Allergies No known drug allergies Medications Name Sig Start Date Stop Date Status Note LastModified by Organization Details LastModified Time losartan 50 mg tablet TAKE 1 TABLET BY MOUTH EVERY DAY active Not Available Not Available No t Available cyclobenzap rine 10 mg tablet TAKE 1 TABLET BY MOUTH THREE TIMES DAILY NEEDED FOR MUSCLE SPASM active Not Available Not Available No t Available methocarbam ol 500 mg tablet active Not Available Not Available Not Available tizanidine 4 mg tablet 03/19 completed Not Available Not Available Not Available meloxicam 15 mg tablet TAKE 1 TABLET BY MOUTH EVERY DAY active Not Available Not Available No t Available prednisone 20 mg tablet Take 5 tabs daily x 7 days, then 4 tabs daily x 7 days, 3 tabs daily x 7 days, then 2 tabs daily x 7 days, 1 tab daily x 7 daily 07/06 completed Not Available Not Available Not Available tramadol 50 mg tablet active Not Available Not Available No t Available ketorolac 30 mg/mL (1 mL) injection solution Inject 1 mL every 6 hours by intramusc ular route. active Not Available Not Available No t Available nortriptyli ne 25 mg capsule TAKE 1 CAPSULE BY MOUTH EVERY DAY IN THE EVENING active Not Available Not Available No t Available meclizine 25 mg tablet TAKE 1 TABLET BY MOUTH EVERY 8 HOURS NEEDED active Not Available Not Available No t Available nortriptyli ne 10 mg capsule TAKE 1 CAPSULE BY MOUTH EVERY DAY IN THE EVENING active Not Available Not Available No t Available mupirocin 2 % topical ointment RADHA SML AMT EXT AA TID active Not Available Not Available No t Available gabapentin 100 mg capsule TAKE 1 CAPSULE BY MOUTH THREE TIMES DAILY active Not Available Not Available No t Available testosteron e cypionate 200 mg/mL intramuscul ar oil ADMINISTE R 0.5 ML IN THE MUSCLE EVERY 4 WEEKS active Not Available Not Available No t Available ibuprofen 600 mg tablet TAKE 1 TABLET BY MOUTH EVERY 6 HOURS NEEDED FOR PAIN. START AFTER PREDNISON E active Not Available Not Available No t Available methylpredn isolone 4 mg tablets in a dose pack FOLLOW PACKAGE DIRECTION S active Not Available Not Available No t Available naproxen 500 mg tablet TAKE 1 TABLET BY MOUTH TWICE DAILY NEEDED FOR PAIN active Not Available Not Available No t Available escitalopra m 10 mg tablet TK 1 T PO QD active Not Available Not Available No t Available BD SafetyGlide Tuberculin Regular Bevel 1 mL 27 x 1/2 syringe USE DIRECTED active Not Available Not Available No t Available varenicline tartrate 1 mg tablet TAKE 1 TABLET BY MOUTH TWICE DAILY active Not Available Not Available No t Available varenicline tartrate 0.5 mg (11)-1 mg (42) tablets in a dose pack TAKE PER PACKAGE INSTRUCTI ONS active Not Available Not Available No t Available cholecalcif cehly (vitamin D3) 1,250 mcg (50,000 unit) capsule TAKE ONE CAPSULE BY MOUTH EVERY WEEK active Not Available Not Available No t Available Paxlovid 300 mg (150 mg x 2)-100 mg tablets in a dose pack 07/06 completed Not Available Not Available Not Available Vitals Date Recorded Body weight Body mass index (BMI) Body height Body temperature Heart rate Oxygen saturation Systolic And Diastolic Provider Name and Address Organization Details Last Updated DateTime 3 615854. 24 g 34.9 kg/m2 182.88 cm 98 [degF] 91 /min 100 % 144/80 mm[Hg] Venkata King CMA [facility] [employer] [facility] 3 16:08:14 Date Recorded Body height Body mass index (BMI) Body weight Body temperature Heart rate Oxygen saturation Systolic And Diastolic Provider Name and Address Organization Details Last Updated DateTime 3 182.88 cm 35.1 kg/m2 550951. 42 g 96.9 [degF] 95 /min 94 % 138/90 mm[Hg] Miriam Bahena RN [facility] [employer] [facility] 3 15:52:10 Date Recorded Body height Body mass index (BMI) Body weight Body temperature Heart rate Oxygen saturation Systolic And Diastolic Provider Name and Address Organization Details Last Updated DateTime 3 182.88 cm 34.7 kg/m2 911698. 65 g 98.4 [degF] 97 /min 99 % 142/90 mm[Hg] Miriam Bahena RN [facility] [employer] 14:08:06 Date Recorded Oxygen saturation Systolic And Diastolic Provider Name and Address Organization Details Last Updated DateTime 07/06/2023 97 % 150/100 mm[Hg] SARA Bain [address] [facility] [address] [address], [place], [address], [facility] [employer] [facility] 07/06/2023 16:15:23 Date Recorded Body height Body mass index (BMI) Body weight Heart rate Body temperature Provider Name and Address Organization Details Last Updated DateTime 07/06/2023 182.88 cm 36.5 kg/m2 405568.3 5 g 88 /min 97.8 [degF] Madhavi Hernandez MA [facility] [employer] [facility] 16:07:54 Social History Question Answer Notes LastModified by Organizat ion Details LastModified Time Tobacco Smoking Status Current Every Day Smoker Miriam Bahena RN [facility], [facility] [employer] [facility] 04/07/2023 14:08:46 What Is Your Level Of Caffeine Consumption? Heavy Information not available 04/07/2023 How Much Tobacco Do You Smoke? 1 PPD Information not available 04/07/2023 Sex: Unknown Functional Status Question Answer Note LastModified by Organizat ion Details LastModified Time Do you use any illicit or recreational drugs? No Information not available 04/07/2023 What is your level of alcohol consumption? Heavy Information not available 04/07/2023 Mental Status None recorded. Family History Nothing Reported. Medical History No medical history recorded. Immunizations Vaccine Type Date Status Note Provider Nam e and Address Organization Details Recorded Time Influenza, split virus, quadrivalent, PF 07/06/2023 completed SARA Bain [address] [address], [place], [address], [facility] [employer] 07/06/2023 17:05:41 Past Encounters Encounter ID Performer Location Encounter Start Date Encounter Closed Date Diagnosis/Indication Diagnosis SNOMED-CT Code Diagnosis ICD10 Code Diagnosis IMO Codes Diagnosis Note [id number] Wendy Lindquist MD [facility] [address] [place] [address] 03/28/2021 00:00:00 03/28/2021 13:04:06 [id number] [facility] [address] [facility] [address] [place] [address] 11/24/2022 15:34:53 11/24/2022 16:49:32 Plantar fasciitis of left foot 2824019048 1357108 M72.2 New problemAdv ised pt to continue to ice foot using frozen water bottle, perform plantar stretches (handout given), avoid walking barefoot, wear supportive shoes. Recommend [place] Power[employer] insoles (or similar). May need to consider addition of plantar fasciitis night splint. May also benefit from e-stim tx with TENS unit.Podia try referral generated. Body mass index 30+ - obesity 867742794 Z68.34 Due for routine labs [id number] KENNETH James [facility] [address] [place] [address] 12/08/2022 15:46:20 12/08/2022 17:32:34 Plantar fasciitis of left foot 4294362070 4989929 M72.2 Minimal improvemen t with steroids, no improvemen t with addition of meloxicamW ill give prednisone taper pending appt with podiatry.A dvised pt to continue to ice foot using frozen water bottle, perform plantar stretches (handout given), avoid walking barefoot, wear supportive shoes. Recommend [place] Power[employer] insoles (or similar). May need to consider addition of plantar fasciitis night splint. May also benefit from e-stim tx with TENS unit.Podia try referral generated last visit, keep upcoming appt for next month. Body mass index 30+ - obesity 232447829 Z68.34 ChronicAdv ised eat 3 meals daily with 1-2 healthy snacks, eliminate caloric drinks, no grazing btw meals, reduce packaged foods, portion control, modificati on of cooking style, low fat/low sugar items, 30 minutes of exercise at least 3x/week, reduce emotional/ stress eating, increase fruits/veg etables, take 15-20 minutes to eat.Try to keep daily calorie count btw 1504-3076 calories. May need to consider referral to credit representative/ nutritioni st as well. Hyperlipidemia 90156723 E78.5 New finding on labstotal 220, trigs 362, hdl 35 (11/24/22)D iscussed need for regular exercise, increase intake of water/vege tables/fib er. Decrease the amount of greasy/fat ty/fried foods in diet. Consider taking a daily fish oil supplement .Any further elevation, especially in trigs, recommend pt start statin. Liver func tion tests outside reference range 505875175 R94.5 New finding on labsalt 51, ast 55Suspect NAFLDDiscu ssed diet/exerc ise modificati onsWill monitor closely and consider imaging further labs if elevation persists or worsens. Patient in formed - test result [id number] Z71.2 Reviewed lab results with patient addressed abnormal results as above. All other labs wnl. [id number] KENNETH James [facility] [address] [place] [address] 04/07/2023 14:00:00 04/07/2023 16:33:49 Plantar fasciitis of left foot 9989376408 2068392 M72.2 ChronicMin imal improvemen t with steroids, no improvemen t with addition of meloxicamS ome improvemen t with steroid injections .Advised pt to continue to ice foot using frozen water bottle, perform plantar stretches (handout given), avoid walking barefoot, wear supportive shoes. Recommend [place] Power[employer] insoles (or similar). May need to consider addition of plantar fasciitis night splint. May also benefit from e-stim tx with TENS unit.Pt establishe d with podiatry, keep upcoming appt for next week. Liver func tion tests outside reference range 115841941 R94.5 Finding on previous labsalt 51, ast 55 (11/24/22)S uspect NAFLDDiscu ssed diet/exerc ise modificati onsWill monitor closely and consider imaging further labs if elevation persists or worsens. Cigarette smoker 7837467 7 F17.210 Encouraged smoking cessation. Smoking cessation counseling and techniques reviewed at length with pt. Literature reviewed. Avoid triggers, support groups. Discussed cessation options (counselin g, medication s, e-cigarett es, patches, alternativ e therapies) . Will give new trial of vareniclin e. Fatigue 02573671 R53.83 New problemWil l check labs to evaluate for anemias Snoring 40083917 R06.83 ChronicWor sening sleep/fati gueScores 9 on [place] Scale (see scanned documentat ion)Will refer to sleep medicine for possible sleep study. [id number] Wendy Lindquist MD [facility] Primary Care [facility] [address] [place] [address] 07/06/2023 15:46:27 07/06/2023 16:54:01 Cigarette smoker 79715429 F17.210 Pt. down to 1ppd. Encouraged smoking cessation. Liver func tion tests outside reference range 785575634 R94.5 ALT wnl, AST 86.Advised to work on diet. Vitamin D deficiency 347 69123 E55.9 Will start weekly supplement ation. Testostero ne level below reference range 451872492 R89.1 Will plan to get second lab draw of testostero ne and PSA. Plan to start testostero ne injections if still below range. Administra tion of influenza vaccine 09531688 Z23 Elevated blood-pressure reading without diagnosis of hypertension 545308979 R03.0 Elevated at visit today, states he used to check it at home and it was always normal.He denies any symptoms.A dvised to check at home and return next week for in office BP check.If still elevated, plan to start medication to manage.Enc ouraged smoking cessation and work on diet/lifes tyle. [id number] Wendy Lindquist MD [facility] Primary [facility] [address] [facility] [address] [place] [address] 07/14/2023 17:02:11 07/15/2023 17:23:59 Health Concerns Section Related Observation LastModified by Organization Detai ls LastModified Time None Recorded Concern Status LastModified by Organization Details LastModified Time None Recorded Advance Directives Directive None Recorded Payers Insurance Date Sequence Insurance Name Policy Number Policy Umanzor Covered Member ID Muanzor Member ID Guarantor Name 02/03/2024 1 [place] [id number] Jhony Watkins [id number] Jhony Watkins 05/11/2023 2 [facility] (MEDICAID HMO) [id number] Jhony Watkins [id number] Jhony Watkins 07/06/2023 2 [place] [employer] Jhony Watkins [id number] Jhony Watkins Notes Date Note Type Note Provider Name and Address Organization Details Recorded Time 11/24/2022 text/html 1. Pt in office for problem visit with c/o having pain in left heel for the past 3-4 weeks. States pain is worst when standing from sitting position. Feels like he's being stabbed with a nail in his foot. No improvement with new boots and insoles.2. Pt states he needs updated labs b/c he was told that he had deposits in his eyes that might mean his cholesterol is high. KENNETH James [address], [address], [place], [address], [facility] [facility] [employer] 11/24/2022 18:31:21 12/08/2022 text/html 12/08/22: 1. Pt in office for problem visit with c/o having pain in left heel for the past 6 weeks. States pain is worst when standing from sitting position. Feels like he's being stabbed with a nail in his foot. No improvement with new boots and insoles. States he has been able to get through work day/week with the steroids, but no help when he started the Meloxicam.2. Pt also wants to review lab results from last visit. 11/24/22: 1. Pt in office for problem visit with c/o having pain in left heel for the past 3-4 weeks. States pain is worst when standing from sitting position. Feels like he's being stabbed with a nail in his foot. No improvement with new boots and insoles.2. Pt states he needs updated labs b/c he was told that he had deposits in his eyes that might mean his cholesterol is high. KENNETH James [address], [address], [place], [address], [employer] 12/08/2022 20:25:37 04/07/2023 text/html 04/07/23: 1. Pt in office for f/u on left heel, plantar fascitis pain. Pt states no improvement with new insoles, night boot, and injections. Pt states he has f/u with podiatry next week.2. Pt states he really wants to quit smoking. Pt states the first time he tried Chantix it made his depression severe and he wound up in the hospital. Pt states the second time he was able to quit for 6 weeks, but started back up d/t family stressors.3. Pt c/o being fatigued, even after getting 8hrs or more of sleep. Pt states he does snore.4. 12/08/22: 1. Pt in office for problem visit with c/o having pain in left heel for the past 6 weeks. States pain is worst when standing from sitting position. Feels like he's being stabbed with a nail in his foot. No improvement with new boots and insoles. States he has been able to get through work day/week with the steroids, but no help when he started the Meloxicam.2. Pt also wants to review lab results from last visit. 11/24/22: 1. Pt in office for problem visit with c/o having pain in left heel for the past 3-4 weeks. States pain is worst when standing from sitting position. Feels like he's being stabbed with a nail in his foot. No improvement with new boots and insoles.2. Pt states he needs updated labs b/c he was told that he had deposits in his eyes that might mean his cholesterol is high. KENNETH James [address], [address], [place], [address], [employer] 04/07/2023 17:38:08 07/06/2023 text/html Pt. here to follow-up on labs. SARA Bain [address], [address], [place], [address], [employer] 07/06/2023 17:10:53
--- OUTSIDE RECORDS SUMMARY | 2025-08-28 00:42 | XMS_ITS | Data Portability ---
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 Again does not want to discuss smoking cessation I will see him back in a couple of months he will need a low-dose CT chest if it has not been done we will start to have conversations about his weight if he will do so and smoking. We will start atorvastatin 10 mg daily [email or web address] Not available 01/12/2024 23:04:35 10/02/2024 10/02/2024 I would like for him to go back on his medications he is reluctant blood pressure I am concerned about as well as his dyslipidemia he will see me back in 6 weeks he will try to conservatively manage his blood pressure cut out salt processed food maybe exercise a little bit more 6 week follow up start sertraline 50 mg daily for his anxiety get liver ultrasound get colon cancer screening [email or web address] Not available 10/29/2024 15:00:37 06/07/2025 06/07/2025 It seems that when he lays in bed at night his brain is just racing we are going to try some hydroxyzine 50 mg daily. Hypertension restart losartan 50. [email or web address] Not available 06/09/2025 15:58:57 07/17/2025 07/17/2025 Clonidine 0.1 b.i.d. added blood pressure check this coming Wednesday regular visit with me 3 months advised to cut back on caffeine advised quit smoking [email or web address] Not available 07/17/2025 21:23:52 Plan of Treatment Reminders Order Date Submit Date Provider Last Modified By Organization Details Last Modified Time Details Appointments ANY 15 2025 02:30P M Alphonso Tran MD Not available Not available Not available [facility] (antin uclear antibo dies) screen , serum 2023 024 [facility], [address] [facility], [facility], [place], [address], 08/28/2024 16:21:09 hepati tis panel (A+B+C ), acute, serum 2023 024 cyahlma [facility], [address] [place] [address], [facility], [place], [address], 08/28/2024 16:21:18 iron + TIBC + ferrit in, serum 2023 024 cyahlma [facility], [address] [facility], [facility], [place], [address], 08/28/2024 16:21:25 cerulo plasmi n, serum 2023 024 cyahlma [facility], [address] [place] [address], [facility], [place], [address], 08/28/2024 16:21:45 copper , serum or plasma 2023 024 cyahlma [facility], [address] [facility], [facility], [place], [address], 08/28/2024 16:21:39 alpha- 1-anti trypsi n (aat), QN, serum 2023 024 cyahlma [facility], [address] [place] [address], [facility], [place], [address], 08/28/2024 16:21:32 Referral None record ed. Procedures None record ed. Surgeries None record ed. Imaging US, liver 2023 024 [facility] ([facility]), [address], [place], [address], 12/08/2024 10:54:37 Medication Orders clonid ine HCl 0.1 mg tablet 2024 025 [facility] #[id number], [address], [place], [place], [id number], 07/24/2025 17:59:38 losart an 50 mg tablet 2024 025 [email or web address] [facility] #[id number], [address], [place], [place], [id number], 06/07/2025 18:06:17 sertra line 50 mg tablet 2024 025 [email or web address] [facility] #[id number], [address], [place], [place], [id number], 06/09/2025 15:59:06 Patient TargetsNo targets recorded. Patient Instructions Encounter Date Encounter Id Patient Instructions Last Modified By Organization Details Last Modified Time 10/02/2024 [id number] A healthy lifestyle: care instructions [email or web address] Not available 10/02/2024 16:43:59 06/07/2025 [id number] Quitting Tobacco : Care Instructions [email or web address] Not available 06/07/2025 18:06:17 A healthy lifestyle: care instructions [email or web address] Not available 06/07/2025 18:06:17 07/17/2025 [id number] Quitting Tobacco : Care Instructions [email or web address] Not available 07/17/2025 21:13:11 A healthy lifestyle: care instructions Not available 07/17/2025 21:13:11 Reason for Referral None Reported. Results Created Date Observation Date Name Description Value Unit Range Abnormal Flag Note LastModifiedBy Organization Detail LastModifiedTime 12/21/19 24 12/22/2023 LIPID PANEL cholesterol, total 240 mg/dL 100-19 9 above high normal Not Available [facility] ([facility]) [address] [facility] [place], [address], 12/22/2023 13:10:32 12/21/19 24 12/22/2023 LIPID PANEL triglyceride s 412 mg/dL 0-149 above high normal Not Available [facility] ([facility]) [address] [facility], [address], 12/22/2023 13:10:32 12/21/19 24 12/22/2023 LIPID PANEL HDL cholesterol 29 mg/dL >39 below low normal Not Available [facility] ([facility]) [address] [facility], [address], 12/22/2023 13:10:32 12/21/19 24 12/22/2023 LIPID PANEL VLDL cholesterol mark 75 mg/dL 5-40 above high normal Not Available [facility] ([facility]) [address] [facility], [address], 12/22/2023 13:10:32 12/21/19 24 12/22/2023 LIPID PANEL LDL chol calc ([facility]) 136 mg/dL 0-99 above high normal Not Available [facility] ([facility]) [address] [facility], [address], 12/22/2023 13:10:32 12/21/19 24 12/22/2023 T4, FREE T4,free(dire ct) 1.12 NG/dL 0.82-1 .77 Not Available [facility] ([facility]) [address] [facility], [address], 12/22/2023 13:10:33 12/21/19 24 12/22/2023 COMP. METAB OLIC PANEL (14) glucose 110 mg/dL 70-99 above high normal Not Available [facility] ([facility]) [address] [facility], [place], [address], 12/22/2023 13:10:34 12/21/19 24 12/22/2023 COMP. METAB OLIC PANEL (14) BUN 9 mg/dL 6-24 Not Available [facility] ([facility]) [address] [facility], [place], [address], 12/22/2023 13:10:34 12/21/19 24 12/22/2023 COMP. METAB OLIC PANEL (14) creatinine 0.88 mg/dL 0.76-1 .27 Not Available [facility] ([facility]) [address] [facility], [place], [address], 12/22/2023 13:10:34 12/21/19 24 12/22/2023 COMP. METAB OLIC PANEL (14) eGFR 105 mL/mi n/1.7 3 >59 Not Available [facility] ([facility]) [address] [facility], [place], [address], 12/22/2023 13:10:34 12/21/19 24 12/22/2023 COMP. METAB OLIC PANEL (14) BUN/creatini ne ratio 10 9-20 Not Available [facility] ([facility]) [address] [facility], [place], [address], 12/22/2023 13:10:34 12/21/19 24 12/22/2023 COMP. METAB OLIC PANEL (14) sodium 143 mmol/ L 134-14 4 Not Available [facility] ([facility]) [address] [facility], [place], [address], 12/22/2023 13:10:34 12/21/19 24 12/22/2023 COMP. METAB OLIC PANEL (14) potassium 4.1 mmol/ L 3.5-5. 2 Not Available [facility] ([facility]) [address] [facility], [place], [address], 12/22/2023 13:10:34 12/21/19 24 12/22/2023 COMP. METAB OLIC PANEL (14) chloride 103 mmol/ L 96-106 Not Available [facility] ([facility]) [address] [facility], [place], [address], 12/22/2023 13:10:34 12/21/19 24 12/22/2023 COMP. METAB OLIC PANEL (14) carbon dioxide, total 24 mmol/ L 20-29 Not Available [facility] ([facility]) [address] [facility], [place], [address], 12/22/2023 13:10:34 12/21/19 24 12/22/2023 COMP. METAB OLIC PANEL (14) calcium 9.6 mg/dL 8.7-10 .2 Not Available [facility] ([facility]) [address] [facility], [place], [address], 12/22/2023 13:10:34 12/21/19 24 12/22/2023 COMP. METAB OLIC PANEL (14) protein, total 6.5 g/dL 6.0-8. 5 Not Available [facility] ([facility]) [address] [facility], [place], [address], 12/22/2023 13:10:34 12/21/19 24 12/22/2023 COMP. METAB OLIC PANEL (14) albumin 4.3 g/dL 4.1-5. 1 Not Available [facility] ([facility]) [address] [facility], [place], [address], 12/22/2023 13:10:34 12/21/19 24 12/22/2023 COMP. METAB OLIC PANEL (14) globulin, total 2.2 g/dL 1.5-4. 5 Not Available [facility] ([facility]) [address] [facility], [place], [address], 12/22/2023 13:10:34 12/21/19 24 12/22/2023 COMP. METAB OLIC PANEL (14) A/G ratio 2.0 1.2-2. 2 Not Available [facility] ([facility]) [address] [place], [address], 12/22/2023 13:10:34 12/21/19 24 12/22/2023 COMP. METAB OLIC PANEL (14) bilirubin, total 0.5 mg/dL 0.0-1. 2 Not Available [facility] ([facility]) [address] [place], [address], 12/22/2023 13:10:34 12/21/19 24 12/22/2023 COMP. METAB OLIC PANEL (14) alkaline phosphatase 86 IU/L 44-121 Not Available [facility] ([facility]) [address] [place], [address], 12/22/2023 13:10:34 12/21/19 24 12/22/2023 COMP. METAB OLIC PANEL (14) AST (SGOT) 72 IU/L 0-40 above high normal Not Available [facility] ([facility]) [address] [place], [address], 12/22/2023 13:10:34 12/21/19 24 12/22/2023 COMP. METAB OLIC PANEL (14) ALT (SGPT) 56 IU/L 0-44 above high normal Not Available [facility] ([facility]) [address] [place], [address], 12/22/2023 13:10:34 12/21/19 24 12/22/2023 MICRO SCOPI C EXAMI NATIO N WBC None seen /hpf 0-5 Not Available [facility] ([facility]) [address] [place], [address], 12/22/2023 13:10:34 12/21/19 24 12/22/2023 MICRO SCOPI C EXAMI NATIO N RBC 0-2 /hpf 0-2 Not Available [facility] ([facility]) [address] [facility], [place], [address], 12/22/2023 13:10:34 12/21/19 24 12/22/2023 MICRO SCOPI C EXAMI NATIO N epithelial cells (non renal) 0-10 /hpf 0-10 Not Available [facility] ([facility]) [address] [facility], [place], [address], 12/22/2023 13:10:34 12/21/19 24 12/22/2023 MICRO SCOPI C EXAMI NATIO N casts None seen /lpf nonese en Not Available [facility] ([facility]) [address] [facility], [place], [address], 12/22/2023 13:10:34 12/21/19 24 12/22/2023 MICRO SCOPI C EXAMI NATIO N bacteria None seen nonese en/few Not Available [facility] ([facility]) [address] [facility], [place], [address], 12/22/2023 13:10:34 12/21/19 24 12/22/2023 TSH TSH 2.050 uIU/m L 0.450- 4.500 Not Available [facility] ([facility]) [address] [facility], [place], [address], 12/22/2023 13:10:35 12/21/19 24 12/22/2023 CBC WITH DIFFE RENTI AL/PL ATELE T WBC 7.8 x10e3 /uL 3.4-10 .8 Not Available [facility] ([facility]) [address] [facility], [place], [address], 12/22/2023 13:10:36 12/21/19 24 12/22/2023 CBC WITH DIFFE RENTI AL/PL ATELE T RBC 5.41 x10e6 /uL 4.14-5 .80 Not Available [facility] ([facility]) [address] [facility], [place], [address], 12/22/2023 13:10:36 12/21/19 24 12/22/2023 CBC WITH DIFFE RENTI AL/PL ATELE T hemoglobin 17.5 g/dL 13.0-1 7.7 Not Available [facility] ([facility]) [address] [place], [address], 12/22/2023 13:10:36 12/21/19 24 12/22/2023 CBC WITH DIFFE RENTI AL/PL ATELE T hematocrit 52.0 % 37.5-5 1.0 above high normal Not Available [facility] ([facility]) [address] [place], [address], 12/22/2023 13:10:36 12/21/19 24 12/22/2023 CBC WITH DIFFE RENTI AL/PL ATELE T MCV 96 fL 79-97 Not Available [facility] ([facility]) [address] [place], [address], 12/22/2023 13:10:36 12/21/1912/22/2023 CBC WITH DIFFE RENTI AL/PL ATELE T MCH 32.3 pg 26.6-3 3.0 Not Available [facility] ([facility]) [address] [place], [address], 12/22/2023 13:10:36 12/21/19 24 12/22/2023 CBC WITH DIFFE RENTI AL/PL ATELE T MCHC 33.7 g/dL 31.5-3 5.7 Not Available [facility] ([facility]) [address] [place], [address], 12/22/2023 13:10:36 12/21/19 24 12/22/2023 CBC WITH DIFFE RENTI AL/PL ATELE T RDW 13.4 % 11.6-1 5.4 Not Available [facility] ([facility]) [address] [place], [address], 12/22/2023 13:10:36 12/21/19 24 12/22/2023 CBC WITH DIFFE RENTI AL/PL ATELE T platelets 202 x10e3 /uL 150-45 0 Not Available [facility] ([facility]) [address], [place], [address], 12/22/2023 13:10:36 12/21/19 24 12/22/2023 CBC WITH DIFFE RENTI AL/PL ATELE T neutrophils 59 % notest ab. Not Available [facility] ([facility]) [address] [facility], [place], [address], 12/22/2023 13:10:36 12/21/19 24 12/22/2023 CBC WITH DIFFE RENTI AL/PL ATELE T lymphs 27 % notest ab. Not Available [facility] ([facility]) [address] [facility], [place], [address], 12/22/2023 13:10:36 12/21/19 24 12/22/2023 CBC WITH DIFFE RENTI AL/PL ATELE T monocytes 8 % notest ab. Not Available [facility] ([facility]) [address] [facility], [place], [address], 12/22/2023 13:10:36 12/21/19 24 12/22/2023 CBC WITH DIFFE RENTI AL/PL ATELE T eos 4 % notest ab. Not Available [facility] ([facility]) [address] [facility], [place], [address], 12/22/2023 13:10:36 12/21/19 24 12/22/2023 CBC WITH DIFFE RENTI AL/PL ATELE T basos 1 % notest ab. Not Available [facility] ([facility]) [address] [facility], [place], [address], 12/22/2023 13:10:36 12/21/19 24 12/22/2023 CBC WITH DIFFE RENTI AL/PL ATELE T neutrophils (absolute) 4.7 x10e3 /uL 1.4-7. 0 Not Available [facility] ([facility]) [address] [facility], [place], [address], 12/22/2023 13:10:36 12/21/19 24 12/22/2023 CBC WITH DIFFE RENTI AL/PL ATELE T lymphs (absolute) 2.1 x10e3 /uL 0.7-3. 1 Not Available [facility] ([facility]) [address] [facility], [place], [address], 12/22/2023 13:10:36 12/21/19 24 12/22/2023 CBC WITH DIFFE RENTI AL/PL ATELE T monocytes(ab solute) 0.6 x10e3 /uL 0.1-0. 9 Not Available [facility] ([facility]) [address] [facility], [place], [address], 12/22/2023 13:10:36 12/21/19 24 12/22/2023 CBC WITH DIFFE RENTI AL/PL ATELE T eos (absolute) 0.3 x10e3 /uL 0.0-0. 4 Not Available [facility] ([facility]) [address] [facility], [place], [address], 12/22/2023 13:10:36 12/21/19 24 12/22/2023 CBC WITH DIFFE RENTI AL/PL ATELE T baso (absolute) 0.1 x10e3 /uL 0.0-0. 2 Not Available [facility] ([facility]) [address] [place], [address], 12/22/2023 13:10:36 12/21/19 24 12/22/2023 CBC WITH DIFFE RENTI AL/PL ATELE T immature granulocytes 1 % notest ab. Not Available [facility] ([facility]) [address] [place], [address], 12/22/2023 13:10:36 12/21/19 24 12/22/2023 CBC WITH DIFFE RENTI AL/PL ATELE T immature grans (abs) 0.1 x10e3 /uL 0.0-0. 1 Not Available [facility] ([facility]) [address] [facility], [place], [address], 12/22/2023 13:10:36 12/21/19 24 12/22/2023 PROST ATE-S PECIF IC AG prostate specific Ag 1.6 NG/mL 0.0-4. 0 Fahad ECLIA metho dolog y. Accor ding to the Ameri can Urolo gical Assoc iatio n, Serum PSA shoul d decre ase and remai n at undet ectab le level s after radic al prost atect fransico. The AUA defin es bioch emica l recur rence as an initi al PSA value 0.2 ng/mL or great er follo wed by a subse quent confi rmato ry PSA value 0.2 ng/mL or great er. Value s obtai carin with diffe rent assay metho ds or kits canno t be used inter rivera eamuniry . Resul ts canno t be inter prete d as absol hamilton evide nce of the prese nce or absen ce of epi verduzco se. Not Available [facility] ([facility]) [address] [facility], [place], [address], 12/22/2023 13:10:37 12/21/19 24 12/22/2023 TRIIO DOTHY SHENA E (T3), FREE triiodothyro nine (T3), free 3.5 pg/mL 2.0-4. 4 Not Available [facility] ([facility]) [address] [facility], [place], [address], 12/22/2023 13:10:37 09/12/19 25 09/13/2024 INTER PRETA TION: interpretati on: Commen t Not infec flaquito with HCV unles s early or acute infec tion is suspe cted (whic h may be delay ed in an immun ocomp romis ed indiv idual ), or other evide nce exist s to indic ate HCV infec tion. Not Available [facility] ([facility]) [address] [facility], [place], [address], 09/14/2024 17:07:08 09/12/19 25 09/12/2024 HAV, HBV, HCV interpretati on COMMEN T HBV Serol ogy Inter preta tion Chart ----- ----- ----- ----- ----- ----- ----- ----- ----- ----- ----- ----- ----- -- Inter preta tion HBsAg anti- HBs anti- HBc anti- HBc IgM ----- ----- ----- ----- ----- ----- ----- ----- ----- ----- ----- ----- ----- -- Ward - Melani te prese nt: + Melani te absen t: - Test not indic ated: TNI ----- ----- ----- ----- ----- ----- ----- ----- ----- ----- ----- ----- ----- -- Susce ptibl e (neve r infec flaquito and no evide nce - - - TNI of vacci natio n) ----- ----- ----- ----- ----- ----- ----- ----- ----- ----- ----- ----- ----- -- Immun e due to frankie al resol ibrahima infec tion - + + TNI ----- ----- ----- ----- ----- ----- ----- ----- ----- ----- ----- ----- ----- -- Immun e due to vacci natio n - + - TNI ----- ----- ----- ----- ----- ----- ----- ----- ----- ----- ----- ----- ----- -- Acute Infec tion + - + + ----- ----- ----- ----- ----- ----- ----- ----- ----- ----- ----- ----- ----- -- Chron ic infec tion + - + - ----- ----- ----- ----- ----- ----- ----- ----- ----- ----- ----- ----- ----- -- Inter preta tion uncle ar* - - + +/- ----- ----- ----- ----- ----- ----- ----- ----- ----- ----- ----- ----- ----- -- *Mult iple possi bilit ies: resol ibrahima infec tion (most commo n); false - posit cari anti- HBc ([facility]); low- level chron ic infec tion ; resol ving acute infec tion. Not Available [facility] ([facility]) [address] [facility], [place], [address], 09/14/2024 17:07:09 09/12/19 25 09/13/2024 HAV, HBV, HCV hep A Ab, total POSITI VE negati ve abnormal Comme nt: The HAV total antib ashley assay detec ts both IgG and IgM but does not diffe renti ate betwe en them. A negat cari resul t sugge sts susce ptibi lity to infec tion. A posit cari resul t could be due to vacci natio n, previ ously resol ibrahima infec tion or activ e infec tion. Testi ng for HAV IgM shoul d be perfo rmed if activ e HAV infec tion is suspe cted. [facility] offer s profi les that will autom atica lly refle x posit cari HAV total antib ashley resul ts to IgM (e.g. , panel #[id number] HAV Antib ashley w/ Rfx). Not Available [facility] ([facility]) [address] [place], [address], 09/14/2024 17:07:09 09/12/1909/13/2024 HAV, HBV, HCV HBsAg screen NEGATI VE negati ve Not Available [facility] ([facility]) [address] [place], [address], 09/14/2024 17:07:09 09/12/1909/13/2024 HAV, HBV, HCV hep B surface Ab, qual NON REACTI VE Non React cari: Not immun e to HBV infec tion. Equiv ocal: Unabl e to deter mine if anti- HBs is prese nt at level s consi stent with immun ity. React cari: Anti- HBs dinah ntrat ion detec flaquito at great er than 10 mIU/m L. Indiv idual is consi dered to be immun e to infec tion with HBV. Not Available [facility] ([facility]) [address] [place], [address], 09/14/2024 17:07:09 09/12/19 25 09/13/2024 HAV, HBV, HCV hep B core Ab, tot NEGATI VE negati ve Not Available [facility] ([facility]) [address] [place], [address], 09/14/2024 17:07:09 09/12/1909/13/2024 HAV, HBV, HCV rfx to hbc IgM COMMEN T Refle x crite luana was not met. Not Available [facility] ([facility]) [address] [facility], [place], [address], 09/14/2024 17:07:09 09/12/1909/13/2024 HAV, HBV, HCV HCV Ab NON REACTI VE nonrea ctive Not Available [facility] ([facility]) [address] [facility], [place], [address], 09/14/2024 17:07:09 09/12/1909/13/2024 DAVID W/REF KRISTYN DAVID direct NEGATI VE negati ve Not Available [facility] ([facility]) [address] [facility], [place], [address], 09/14/2024 17:07:10 09/12/1909/13/2024 CERUL OPLAS MIN ceruloplasmi n 26.7 mg/dL 16.0-3 1.0 Not Available [facility] ([facility]) [address] [facility], [place], [address], 09/14/2024 17:07:11 09/12/1909/14/2024 COPPE R, SERUM OR PLASM A copper, serum or plasma 108 ug/dL 69-132 Detec tion Limit = 5 Not Available [facility] ([facility]) [address] [place], [address], 09/14/2024 17:07:12 09/12/1909/13/2024 ALPHA -1-AN TITRY PSIN, SERUM hrwfb-6-vfuw trypsin, serum 187 mg/dL 101-18 7 Not Available [facility] ([facility]) [address] [place], [address], 09/14/2024 17:07:13 09/12/19 25 09/13/2024 HEP A AB, IGM hep A Ab, IgM Negati ve negati ve A negat cari anti- HAV IgM resul t sugge sts no recen t or curre nt HAV infec tion. Not Available [facility] ([facility]) [address] [facility], [place], [address], 09/14/2024 17:07:14 09/12/19 25 09/13/2024 FE+TI BC+FE R iron bind.cap.(TI BC) 322 ug/dL 250-45 0 Not Available [facility] ([facility]) [address] [facility], [place], [address], 09/14/2024 17:07:15 09/12/19 25 09/13/2024 FE+TI BC+FE R UIBC 191 ug/dL 111-34 3 Not Available [facility] ([facility]) [address] [facility], [place], [address], 09/14/2024 17:07:15 09/12/19 25 09/13/2024 FE+TI BC+FE R iron 131 ug/dL 38-169 Not Available [facility] ([facility]) [address] [facility], [place], [address], 09/14/2024 17:07:15 09/12/19 25 09/13/2024 FE+TI BC+FE R iron saturation 41 % 15-55 Not Available [facility] ([facility]) [address] [place], [address], 09/14/2024 17:07:15 09/12/19 25 09/13/2024 FE+TI BC+FE R ferritin 651 NG/mL 30-400 above high normal Not Available [facility] ([facility]) [address] [place], [address], 09/14/2024 17:07:15 12/06/19 25 12/05/2024 US, liver No observ ation record ed. [facility] ([facility]) [address], [place], [address], 12/14/2024 11:18:05 Result Notes None recorded. Problems Name Problem SNOMED Code Status Onset Date Resolution Date Notes Provider Name and Address Organization Details Recorded Time Essential hypertension 13775801 Active 2023 Kike Thomas MA null, [place] - [facility] 4 16:23:27 Low back pain 876201423 Active 2023 Kike Thomas [place], [place] [facility] 4 16:23:28 Tobacco dependence syndrome 28986628 Active 2023 Alphonso Tran MD Attn: John sanchez,[address] [place], [address], [place] [facility] 4 11:55:55 Testosterone level below reference range 880346503 Active 2023 Alphonso Tran MD Attn: John sanchez,[address] [place], [address], [place] [facility] 4 11:55:56 Liver function tests outside reference range 865383387 Active 2023 Kike Thomas [place], [place] [facility] 4 17:32:35 Hyperlipidemia 00311846 Active 2023 Kike Thomas [place], [place] [facility] 4 17:32:37 Problem Notes None recorded. Procedures Surgical History Date Name Laterality Status Provider Name and Address Organization Details Recorded Time 05/19/20 23 Injection completed VINCENZO MOSES DPM [address], [place], [address], [place] [facility] 05/19/2023 14:49:29 03/16/20 23 Injection completed ALETHA TITUS, [place], [address], [place] [facility] 03/16/2023 15:13:43 02/03/20 23 Injection completed ALETHA TITUS, [place], [place], [address], [place] 02/02/2023 15:52:59 12/31/19 Injection completed VINCENZO MOSES DPM [address] [place], [address], [facility] 12/30/2022 16:20:43 12/17/19 Injection completed VINCENZO JOSUÉGALENYan [address] [place], [address], [facility] - [place] 12/17/2022 12:55:34 extraction of cataract completed Carla Yuan [facility] 12/14/2023 15:06:28 tonsillectomy completed Carla Yuan [facility] 12/14/2023 15:06:18 Imaging Results None recorded. Procedure Notes None recorded. Medical Equipment None Reported. Allergies No known drug allergies Medications Name Sig Start Date Stop Date Status Note LastModified by Organization Details LastModified Time losartan 50 mg tablet TAKE 1 TABLET BY MOUTH EVERY DAY active Not Available Not Available No t Available cyclobenzap rine 10 mg tablet 01/11 completed Not Available Not Available Not Available clonidine HCl 0.1 mg tablet TAKE 1 TABLET BY MOUTH TWICE DAILY 08/03 completed dose rivera ed, see pt case 07/24 Not Available Not Available Not Available atorvastati n 10 mg tablet TAKE 1 TABLET BY MOUTH EVERY DAY 06/07 completed Not Available Not Available Not Available hydrocodone 5 mg-acetamin ophen 325 mg tablet TAKE 1 TABLET BY MOUTH THREE TIMES DAILY NEEDED 01/11 completed Not Available Not Available Not Available meloxicam 15 mg tablet TAKE 1 TABLET BY MOUTH EVERY DAY 12/30 completed Not Available Not Available Not Available prednisone 20 mg tablet TAKE 2 TABLETS BY MOUTH EVERY DAY FOR 5 DAYS 03/16 completed Not Available Not Available Not Available hydroxyzine HCl 50 mg tablet TAKE 1 TABLET BY MOUTH AT BEDTIME NEEDED active Not Available Not Available No t Available sildenafil 100 mg tablet TAKE 1 TABLET BY MOUTH 40 MINUTES BEFORE SEXUAL ACTIVITY. MAY ONLY TAKE 1 TABLET IN 24 HOURS active Not Available Not Available No t Available Kenalog 40 mg/mL suspension for injection Take 0.25 mL by injection route. 12/13 completed Not Available Not Available Not Available nortriptyli ne 25 mg capsule TAKE 1 CAPSULE BY MOUTH EVERY DAY IN THE EVENING 06/07 completed Not Available Not Available Not Available clonidine HCl 0.2 mg tablet TAKE 1 TABLET BY MOUTH TWICE DAILY active Not Available Not Available No t Available meclizine 25 mg tablet TAKE 1 TABLET BY MOUTH EVERY 8 HOURS NEEDED 12/30 completed Not Available Not Available Not Available nortriptyli ne 10 mg capsule TAKE 1 CAPSULE BY MOUTH EVERY DAY IN THE EVENING 12/13 completed Not Available Not Available Not Available gabapentin 100 mg capsule TAKE 1 CAPSULE BY MOUTH THREE TIMES DAILY 06/07 completed Not Available Not Available Not Available dexamethaso ne sodium phosphate 4 mg/mL injection solution Inject 1 mL by intramusc ular route. 12/13 completed Not Available Not Available Not Available testosteron e cypionate 200 mg/mL intramuscul ar oil ADMINISTE R 0.5 ML IN THE MUSCLE EVERY 4 WEEKS. 12/13 completed Not Available Not Available Not Available ibuprofen 600 mg tablet TAKE 1 TABLET BY MOUTH THREE TIMES DAILY WITH MEALS FOR 30 DAYS 06/07 completed Not Available Not Available Not Available methylpredn isolone 4 mg tablets in a dose pack FOLLOW PACKAGE DIRECTION S 01/11 completed Not Available Not Available Not Available sertraline 50 mg tablet TAKE 1 TABLET BY MOUTH EVERY DAY 06/09 completed Not Available Not Available Not Available Prilosec OTC 20 mg tablet,bryant yed release Take by oral route. 01/11 completed Not Available Not Available Not Available BD SafetyGlide Tuberculin Regular Bevel 1 mL 27 x 1/2 syringe USE DIRECTED 12/13 completed Not Available Not Available Not Available varenicline tartrate 1 mg tablet TAKE 1 TABLET BY MOUTH TWICE DAILY 12/13 completed Not Available Not Available Not Available varenicline tartrate 0.5 mg (11)-1 mg (42) tablets in a dose pack TAKE PER PACKAGE INSTRUCTI ONS 12/13 completed Not Available Not Available Not Available cholecalcif chely (vitamin D3) 1,250 mcg (50,000 unit) capsule TAKE ONE CAPSULE BY MOUTH EVERY WEEK 12/13 completed Not Available Not Available Not Available Vitals Date Recorded Body height Body mass index (BMI) Body weight Heart rate Oxygen saturation Systolic And Diastolic Provider Name and Address Organization Details Last Updated DateTime 5 185.42 cm 34.9 kg/m2 859377. 9 g 94 /min 98 % 140/90 mm[Hg] Robyn Mosley [facility] 5 16:28:11 Date Recorded Body height Body mass index (BMI) Body weight Heart rate Oxygen saturation Systolic And Diastolic Provider Name and Address Organization Details Last Updated DateTime 4 185.42 cm 35.3 kg/m2 982099. 68 g 89 /min 98 % 140/92 mm[Hg] Nicole Yanez [facility] 4 16:29:43 Date Recorded Body height Body mass index (BMI) Body weight Heart rate Oxygen saturation Systolic And Diastolic Provider Name and Address Organization Details Last Updated DateTime 5 185.42 cm 34.3 kg/m2 858161. 38 g 102 /min 97 % 150/92 mm[Hg] Robyn Mosley [facility] 5 14:42:53 Date Recorded Body height Body mass index (BMI) Body weight Heart rate Oxygen saturation Systolic And Diastolic Provider Name and Address Organization Details Last Updated DateTime 5 185.42 cm 34.8 kg/m2 360983. 95 g 94 /min 97 % 160/80 mm[Hg] Robyn Mosley [facility] 5 15:51:09 Date Recorded Body height Heart rate Oxygen saturation Systolic And Diastolic Provider Name and Address Organization Details Last Updated DateTime 07/23/2025 185.42 cm 87 /min 97 % 154/84 mm[Hg] Robyn Mosley [facility] 07/23/2025 14:40:53 Social History Question Answer Notes LastModified by Organizat ion Details LastModified Time Tobacco Smoking Status Current Every Day Smoker ÓSCAR West, [facility] 12/14/2023 15:07:18 Do You Have An Advance Directive? No Information not available 12/16/2022 Are You Blind Or Do You Have Difficulty Seeing? No Information not available 10/02/2024 What Is Your Level Of Caffeine Consumption? Occasional Information not available 10/02/2024 In The 14 Days Before Symptom Onset, Have You Had Close Contact With A Laboratory-confir med COVID-19 While That Case Was Ill? No Information not available 12/30/2022 In The 14 Days Before Symptom Onset, Have You Had Close Contact With A Person Who Is Under Investigation For COVID-19 While That Person Was Ill? No Information not available 12/30/2022 Have You Been To An Area Known To Be High Risk For COVID-19? No Information not available 12/30/2022 Are You Deaf Or Do You Have Serious Difficulty Hearing? No Information not available 10/02/2024 Are There Any Guns Present In Your Home? No Information not available 10/02/2024 Do You Have A Medical Power Of Radio Repair Teacher? No Information not available 12/16/2022 What Was The Date Of Your Most Recent Tobacco Screening? 07/17/2025 Information not available 07/17/2025 What Is Your Current Pack Years? 30ormorepackye ars Information not available 12/14/2023 Do You Use Your Seat Belt Or Car Seat Routinely? Yes Information not available 10/02/2024 Do You Have Smoke And Carbon Monoxide Detectors In Your Home? Yes Information not available 10/02/2024 At What Age Did You Start Smoking Tobacco? 6 Information not available 12/14/2023 How Much Tobacco Do You Smoke? 1 PPD 1.5 Packs Per Day Information not available 12/14/2023 Do You Use Sunscreen Routinely? Yes Information not available 10/02/2024 Has Tobacco Cessation Counseling Been Provided? Yes Information not available 10/02/2024 On What Date Was Tobacco Cessation Counseling Provided? 07/17/2025 Information not available 07/17/2025 Sex: Male Functional Status Question Answer Note LastModified by Organizat ion Details LastModified Time Do you use any illicit or recreational drugs? No Information not available 10/02/2024 Do you or have you ever used any other forms of tobacco or nicotine? No Information not available 10/02/2024 Are you able to care for yourself independently? Yes [facility] Information not available 10/02/2024 Mental Status None recorded. Family History Nothing Reported. Medical History Condition Response Acid Reflux (GERD) Y High Blood Pressure Y High Cholesterol Y Immunizations Vaccine Type Date Status Note Provider Vinod celestin and Address Organization Details Recorded Time Influenza, recombinant, quadrivalent, PF 05/26/2018 completed SIMRAN [place], [place] [facility] 06/21/2024 15:27:56 COVID-19, mRNA, LNP-S, PF, 100 mcg/0.5mL dose or 50 mcg/0.25mL dose 10/10/2020 completed SIMRAN [place] [facility] 06/21/2024 15:27:56 COVID-19, mRNA, LNP-S, PF, 100 mcg/0.5mL dose or 50 mcg/0.25mL dose 11/07/2020 completed SIMRAN [place] [facility] 06/21/2024 15:27:56 Influenza, split virus, quadrivalent, PF 07/06/2023 completed SIMRAN [place] [facility] 06/21/2024 15:27:56 Past Encounters Encounter ID Performer Location Encounter Start Date Encounter Closed Date Diagnosis/Indication Diagnosis SNOMED-CT Code Diagnosis ICD10 Code Diagnosis IMO Codes Diagnosis Note [id number] VINCENZO MOSES DPM [facility] [address] [address] 12/16/2022 15:33:24 12/18/2022 10:53:23 Plantar fascial fibromatosis 37543261 M72.2 Our plan is to decrease pain and inflammati on, improve ambulation and to allow the patient to 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 The patient was given education about shoe recommenda tions specific for the condition. The patient was educated about custom orthotics and how appropriat e shoes and orthotics can prevent further worsening of the deformity. The patient was educated about how bad shoe habits can worsen the condition. NSAIDS, P.T., injections and other conservati ve treatments were discussed. Both surgical and non surgical treatments were discussed, but conservati ve options were emphasized . Calcaneal spur of left foot [id number] 14887 M77.32 The patient was educated regarding how to mechanical ly stabilize their deformity. The patient was given education about shoe recommenda tions specific for the condition. The patient was educated about custom orthotics and how appropriat e shoes and orthotics can prevent further worsening of the deformity. The patient was educated about how bad shoe habits can worsen the condition. NSAIDS, P.T., injections and other conservati ve treatments were discussed. Both surgical and non surgical treatments were discussed, but conservati ve options were emphasized . 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 The patient was given education about shoe recommenda tions specific for the condition. The patient was educated about custom orthotics and how appropriat e shoes and orthotics can prevent further worsening of the deformity. The patient was educated about how bad shoe habits can worsen the condition. NSAIDS, P.T., injections and other conservati ve treatments were discussed. Both surgical and non surgical treatments were discussed, but conservati ve options were emphasized . Calcaneal spur of left foot 8095362568 33012 M77.32 The patient was educated regarding how to mechanical ly stabilize their deformity. The patient was given education about shoe recommenda tions specific for the condition. The patient was educated about custom orthotics and how appropriat e shoes and orthotics can prevent further worsening of the deformity. The patient was educated about how bad shoe habits can worsen the condition. NSAIDS, P.T., injections and other conservati ve treatments were discussed. Both surgical and non surgical treatments were discussed, but conservati ve options were emphasized . 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 The patient was given education about shoe recommenda tions specific for the condition. The patient was educated about custom orthotics and how appropriat e shoes and orthotics can prevent further worsening of the deformity. The patient was educated about how bad shoe habits can worsen the condition. NSAIDS, P.T., injections and other conservati ve treatments were discussed. Both surgical and non surgical treatments were discussed, but conservati ve options were emphasized .-to obtain nightsplin t left foot ordered 12/16/22 Calcaneal spur of left foot [id number] 33077 M77.32 The patient was educated regarding how to mechanical ly stabilize their deformity. The patient was given education about shoe recommenda tions specific for the condition. The patient was educated about custom orthotics and how appropriat e shoes and orthotics can prevent further worsening of the deformity. The patient was educated about how bad shoe habits can worsen the condition. NSAIDS, P.T., injections and other conservati ve treatments were discussed. Both surgical and non surgical treatments were discussed, but conservati ve options were emphasized . 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 The patient was given education about shoe recommenda tions specific for the condition. The patient was educated about custom orthotics and how appropriat e shoes and orthotics can prevent further worsening of the deformity. The patient was educated about how bad shoe habits can worsen the condition. NSAIDS, P.T., injections and other conservati ve treatments were discussed. Both surgical and non surgical treatments were discussed, but conservati ve options were emphasized .-contineu nightsplin t left foot ordered 12/16/22 Calcaneal spur of left foot [id number] 88150 M77.32 The patient was educated regarding how to mechanical ly stabilize their deformity. The patient was given education about shoe recommenda tions specific for the condition. The patient was educated about custom orthotics and how appropriat e shoes and orthotics can prevent further worsening of the deformity. The patient was educated about how bad shoe habits can worsen the condition. NSAIDS, P.T., injections and other conservati ve treatments were discussed. Both surgical and non surgical treatments were discussed, but conservati ve options were emphasized . 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 The patient was given education about shoe recommenda tions specific for the condition. The patient was educated about custom orthotics and how appropriat e shoes and orthotics can prevent further worsening of the deformity. The patient was educated about how bad shoe habits can worsen the condition. NSAIDS, P.T., injections and other conservati ve treatments were discussed. Both surgical and non surgical treatments were discussed, but conservati ve options were emphasized .-contineu nightsplin t left foot ordered 12/16/22-co ntiune ibuprofen as previously prescribed Calcaneal spur of left foot [id number] 03654 M77.32 The patient was educated regarding how to mechanical ly stabilize their deformity. The patient was given education about shoe recommenda tions specific for the condition. The patient was educated about custom orthotics and how appropriat e shoes and orthotics can prevent further worsening of the deformity. The patient was educated about how bad shoe habits can worsen the condition. NSAIDS, P.T., injections and other conservati ve treatments were discussed. Both surgical and non surgical treatments were discussed, but conservati ve options were emphasized . 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 The patient was given education about shoe recommenda tions specific for the condition. The patient was educated about custom orthotics and how appropriat e shoes and orthotics can prevent further worsening of the deformity. The patient was educated about how bad shoe habits can worsen the condition. NSAIDS, P.T., injections and other conservati ve treatments were discussed. Both surgical and non surgical treatments were discussed, but conservati ve options were emphasized .-contineu nightsplin t left foot ordered 12/16/22-co ntiune ibuprofen as previously prescribed Calcaneal spur of left foot 3339193097 62751 M77.32 The patient was educated regarding how to mechanical ly stabilize their deformity. The patient was given education about shoe recommenda tions specific for the condition. The patient was educated about custom orthotics and how appropriat e shoes and orthotics can prevent further worsening of the deformity. The patient was educated about how bad shoe habits can worsen the condition. NSAIDS, P.T., injections and other conservati ve treatments were discussed. Both surgical and non surgical treatments were discussed, but conservati ve options were emphasized . 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 The patient was given education about shoe recommenda tions specific for the condition. The patient was educated about custom orthotics and how appropriat e shoes and orthotics can prevent further worsening of the deformity. The patient was educated about how bad shoe habits can worsen the condition. NSAIDS, P.T., injections and other conservati ve treatments were discussed. Both surgical and non surgical treatments were discussed, but conservati ve options were emphasized .-contineu nightsplin t left foot ordered 12/16/22-co ntiune ibuprofen as previously prescribed Calcaneal spur of left foot [id number] 14041 M77.32 The patient was educated regarding how to mechanical ly stabilize their deformity. The patient was given education about shoe recommenda tions specific for the condition. The patient was educated about custom orthotics and how appropriat e shoes and orthotics can prevent further worsening of the deformity. The patient was educated about how bad shoe habits can worsen the condition. NSAIDS, P.T., injections and other conservati ve treatments were discussed. Both surgical and non surgical treatments were discussed, but conservati ve options were emphasized . 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 [place] [address] [place] [address] 10/02/2024 16:10:14 10/02/2024 17:05:26 Body mass index 30+ - obesity 264371577 Z68.34 Obesity 061794566 E66.9 Hyperlipidemia 70806722 E78.5 Essential hypertension 36220206 I10 Anxiety 87700730 F41.9 [id number] [address] [facility] [place] [address] [place] [address] 06/07/2025 14:07:08 06/07/2025 15:36:06 Obese class I [id number] 07514 E66.811 E66.3 4931199926 34.3 Smoker 97937941 F17.200 Essential hypertension 93294912 I10 Hyperlipidemia 52278772 E78.5 Anxiety 91151243 F41.9 [id number] Alphonso Tran MD [facility] (Adult Med) [address] [place] [address] 07/17/2025 15:16:45 07/17/2025 16:36:33 Obese class I [id number] 12141 E66.811 E66.3 4586905810 34.8 Smoker 66716046 F17.200 Essential hypertension 47645753 I10 [id number] Alphonso Tran MD [facility] [place] [address] [place] [address] 07/23/2025 14:33:59 07/23/2025 17:14:06 Blood pressure taking 52137805 Z01.30 [id number] Health Concerns Section Related Observation LastModified by Organization Detai ls LastModified Time None Recorded Concern Status LastModified by Organization Details LastModified Time None Recorded Advance Directives Directive N: Payers Insurance Date Sequence Insurance Name Policy Number Policy Umanzor Covered Member ID Umanzor Member ID Guarantor Name 07/27/2023 2 [place] [employer] [place] [employer] Jhony Marinelli [id number] Jhony Marinelli 08/31/2023 1 [place] [id number] Jhony Marinelli [id number] Jhony Marinelli Notes Date Note Type Note Provider Name and Address Organization Details Recorded Time 01/12/2024 text/html Blood test show liver enzymes are up he is never been worked up hypertension no headache or dizziness his low back pain he says doing better he is deciding what he is can to continue follow-up with chiropractor hyperlipidemia needs to be started on therapy cholesterol 240 his diet is poor Alphonso Tran MD Attn: Accounting,[address] [facility], [place], [address], [facility] - SI 01/12/2024 23:08:10 10/02/2024 text/html anxiety but no SI HI does not really feel depressed he is not taking his blood pressure medicine did not get his liver ultrasound yet and he needs colon cancer screening Alphonso Tran MD Attn: Accounting,[address] [facility], [place], [address], [place] [facility] 10/29/2024 15:00:55 06/07/2025 text/html Dyslipidemia he is not taking anything for that right now sertraline he would like to get back on that he is having little of anxiety he is getting worked up for elevated LFTs but he is asymptomatic when he is having some problems with some erectile dysfunction Alphonso Tran MD Attn: Accounting,[address] [facility], [place], [address], [place] [facility] 06/09/2025 16:21:37 07/17/2025 text/html Short interval follow up hypertension tolerating the losartan no dizziness or problems Alphonso Tran MD Attn: Accounting,[address] [facility], [place], [address], [place] [facility] 07/17/2025 21:24:39
--- OUTSIDE RECORDS SUMMARY | 2025-08-28 00:42 | XMS_ITS | Continuity of Care Document ---
Author Organization [facility] (Adult Med) Address [address] [place] [address] Care Team Providers Care Shingle Weaver Name Role Phone ALPHONSO TRAN Primary Care Provider Assessment Encounter Date Assessment Date Assessment LastModified by Organization Details LastModified Time 07/17/2025 07/17/2025 Clonidine 0.1 b.i.d. added blood pressure check this coming Wednesday regular visit with co 3 months advised to cut back on caffeine advised quit smoking [email or web address] Not available 07/17/2025 21:23:52 Plan of Treatment Reminders Order Date Submit Date Provider Last Modified By Organization Details Last Modified Time Details Appointments ANY 15 2025 02:30P M Alphonso Tran MD Not available Not available Not available Lab None record ed. Referral None record ed. Procedures None record ed. Surgeries None record ed. Imaging None record ed. Medication Orders clonid ine HCl 0.1 mg tablet [address] [place] [address] [id number], [address] [facility], [place], [place], [id number], 07/24/2025 17:59:38 Patient TargetsNo targets recorded. Patient Instructions Encounter Date Encounter Id Patient Instructions Last Modified By Organization Details Last Modified Time 07/17/2025 [id number] Quitting Tobacco : Care Instructions [email or web address] Not available 07/17/2025 21:13:11 A healthy lifestyle: care instructions Not available 07/17/2025 21:13:11 Reason for Referral None Reported. Problems Name Problem SNOMED Code Status Onset Date Resolution Date Notes Provider Name and Address Organization Details Recorded Time Essential hypertension 70168342 Active 2023 Kike Thomas [place] null, [place] [facility] 4 16:23:27 Low back pain 006524881 Active 2023 Kike Thomas [place], [place] [facility] 4 16:23:28 Tobacco dependence syndrome 76737298 Active 2023 Alphonso Tran MD Attn: John sanchez,[address] [facility], [place], [address], [place] - [facility] 4 11:55:55 Testosterone level below reference range 524162453 Active 2023 Alphonso Tran MD Attn: Vivadeel sanchez,[address] [facility], [place], [address], [place] [facility] 4 11:55:56 Liver function tests outside reference range 812053703 Active 2023 Kike [place] [facility] 4 17:32:35 Hyperlipidemia 95161397 Active 2023 Kike [place] [facility] 4 17:32:37 Problem Notes None recorded. Procedures Surgical History Date Name Laterality Status Provider Name and Address Organization Details Recorded Time 05/19/20 23 Injection completed ALETHA TITUS, [place], [address], [place] [facility] 05/19/2023 14:49:29 03/16/20 23 Injection completed ALETHA TITUS, [place], [address], [place] [facility] 03/16/2023 15:13:43 02/03/20 23 Injection [place], [address], [place] [facility] 02/02/2023 15:52:59 12/31/19 23 Injection completed ALETHA TITUS, [place], [address], [place] [facility] 12/30/2022 16:20:43 12/17/19 23 Injection completed VINCENZO MOSES DPM [address] [place], [address], [place] - [facility] 12/17/2022 12:55:34 extraction of cataract completed Carla Kwabena [place] - [place] 12/14/2023 15:06:28 tonsillectomy completed Carla Yuan [place] - [place] 12/14/2023 15:06:18 Imaging Results None recorded. [...] Updated DateTime 5 185.42 cm 34.8 kg/m2 471579. 95 g 94 /min 97 % 160/80 mm[Hg] Robyn Mosley MA [place] - [facility] 5 15:51:09 Social History Question Answer Notes LastModified by Organizat ion Details LastModified Time Tobacco Smoking Status Current Every Day Smoker Carla Yuan, [facility], [place] - [place] 12/14/2023 15:07:18 Do You Have An Advance [...] Do You Have A Medical Power Of Car Dryer? No Information not available 12/16/2022 What Was [...] able to care for yourself independently? Yes Information not available 10/02/2024 Mental Status None [...] 15:27:56 Influenza, split virus, quadrivalent, PF 07/06/2023 SIMRAN Joy, [place] - [facility] 06/21/2024 15:27:56 Past Encounters Encounter ID Performer Location Encounter Start Date Encounter Closed Date Diagnosis/Indication Diagnosis SNOMED-CT Code Diagnosis ICD10 Code Diagnosis IMO Codes Diagnosis Note [id number] MD Pankaj Moreno (Adult Med) [address] [place] [phone] 07/17/2025 15:16:45 07/17/2025 16:36:33 Obese class I 3859568278 83248 E66.811 E66.3 3652780393 34.8 Smoker 51906705 F17.200 Essential hypertension 55722156 I10 Health Concerns Section Related Observation LastModified by Organization Detai ls LastModified Time None Recorded Concern Status LastModified by Organization Details LastModified Time None Recorded Payers Encounter Date Sequence Insurance Name Policy Number Policy Umanzor Covered Member ID Umanzor Member ID Guarantor Name 07/17/2025 1 [place] [id number] Jhony E Isis [id number] Jhony Marinelli Notes Date Note Type Note Provider Name and Address Organization Details Recorded Time 07/17/2025 text/html Short interval follow up hypertension tolerating the losartan no dizziness or problems Alphonso Tran MD Attn: Accounting,[address] [facility], [place], [address], [facility] - SI 07/17/2025 21:24:39
--- OUTSIDE RECORDS SUMMARY | 2025-08-28 00:42 | XMS_ITS | Continuity of Care Document ---
Author Organization [facility], [facility] Address [address] [place] [address] Care Team Providers Care Associate Music Professor Name Role Phone ELIER TRAN Primary Care Provider [phone] Assessment No assessment recorded. Plan of Treatment Reminders Order Date Submit Date Provider Last Modified By Organization Details Last Modified Time Details Appointments ANY 15 026 02:30PM Elier Tran MD Not available Not available Not available Lab None record ed. Referral None record ed. Procedures None record ed. Surgeries None record ed. Imaging None record ed. Medication Orders None record ed. Patient TargetsNo targets recorded. Patient InstructionsNo instructions recorded. Reason for Referral None Reported. Problems Name Problem SNOMED Code Status Onset Date Resolution Date Notes Provider Name and Address Organization Details Recorded Time Essential hypertension 37049399 Active 2023 Kike Thomas MA null, [place] - [facility] 4 16:23:27 Low back pain 226594532 Active 2023 Kike Thomas MA null, [place] - [facility] 4 16:23:28 Tobacco dependence syndrome 54174956 Active 2023 Elier Tran MD Attn: John sanchez,[address] [facility], [place], [address], [facility] - [facility] 4 11:55:55 Testosterone level below reference range 645386168 Active 2023 Elier Tran MD Attn: John sanchez,[address] [facility], [place], [address], [facility] - [facility] 4 11:55:56 Liver function tests outside reference range 998758152 Active 2023 Kike [place] [facility] 17:32:35 Hyperlipidemia 42330849 Active 2023 Kike [place] [facility] 17:32:37 Problem Notes None recorded. Procedures Surgical History Date Name Laterality Status Provider Name and Address Organization Details Recorded Time 05/19/20 23 Injection completed ALETHA TITUS, [place], [address], [place] [facility] 05/19/2023 14:49:29 03/16/20 23 Injection completed ALETHA TITUS, [place], [address], [place] [facility] 03/16/2023 15:13:43 02/03/20 23 Injection completed ALETHA TITUS, [place], [address], [place] [facility] 02/02/2023 15:52:59 12/31/19 23 Injection completed VINCENZO MOSES DPM [address], [place], [address], [place] [facility] 12/30/2022 16:20:43 12/17/19 23 Injection completed VINCENZO MOSES DPM [address], [place], [address], [place] [facility] 12/17/2022 12:55:34 extraction of cataract completed [place] - [facility] 12/14/2023 15:06:28 tonsillectomy completed [place] - [facility] 12/14/2023 15:06:18 Imaging Results None recorded. Procedure [...] BY MOUTH TWICE DAILY 08/03 completed dose nicole ed, see pt case 07/24 Not Available [...] Not Available Vitals Date Recorded Body height Heart rate Oxygen saturation Systolic And Diastolic Provider Name and Address Organization Details Last Updated DateTime 07/23/2025 185.42 cm 87 /min 97 % 154/84 mm[Hg] Robyn Mosley [place] [facility] 07/23/2025 14:40:53 Social History Question Answer Notes LastModified by Organizat ion Details LastModified Time Tobacco Smoking Status Current Every Day Smoker [place], [place] [facility] 12/14/2023 15:07:18 Do You Have An Advance [...] Do You Have A Medical Power Of Tax Compliance Manager? No Information not available 12/16/2022 What Was [...] Time Influenza, recombinant, quadrivalent, PF 05/26/2018 completed Elvis Baron [place], [place] [facility] 06/21/2024 15:27:56 COVID-19, mRNA, LNP-S, PF, 100 mcg/0.5mL dose or 50 mcg/0.25mL dose 10/10/2020 completed Elvis Baron [place] [facility] 06/21/2024 15:27:56 COVID-19, mRNA, LNP-S, PF, 100 mcg/0.5mL dose or 50 mcg/0.25mL dose 11/07/2020 completed Elvis Baron [place] [facility] 06/21/2024 15:27:56 Influenza, split virus, quadrivalent, PF 07/06/2023 completed Elvis Baron [place] [facility] 06/21/2024 15:27:56 Past Encounters Encounter ID Performer Location Encounter Start Date Encounter Closed Date Diagnosis/Indication Diagnosis SNOMED-CT Code Diagnosis ICD10 Code Diagnosis IMO Codes Diagnosis Note [id number] Elier Tran MD [facility] (Adult Med) [address] [place] [phone] 07/17/2025 15:16:45 07/17/2025 16:36:33 Obese class I 1751165786 09852 E66.811 E66.3 7067450039 34.8 Smoker 08254868 F17.200 Essential hypertension 34900742 I10 [id number] Elier Tran MD [facility] [address] [place] [address] 07/23/2025 14:33:59 07/23/2025 17:14:06 Blood pressure taking 67644661 Z01.30 261943 Health Concerns Section Related Observation LastModified by Organization Detai ls LastModified Time None Recorded Concern Status LastModified by Organization Details LastModified Time None Recorded Payers Encounter Date Sequence Insurance Name Policy Number Policy Umanzor Covered Member ID Umanzor Member ID Guarantor Name 07/23/2025 1 [employer] [id number] Jhony Marinelli [id number] Jhony Marinelli
--- OUTSIDE RECORDS SUMMARY | 2025-08-28 00:42 | XMS_ITS | Continuity of Care Document ---
Author Organization [facility], [facility] Venu Hoffmann Address [address] [place] [address] Care Team Providers Care Assistant Manager Name Role Phone ALPHONSO TRAN Primary Care Provider [phone] Assessment Encounter Date Assessment Date Assessment LastModified by Organization Details LastModified Time 06/07/2025 06/07/2025 It seems that when he lays in bed at night his brain is just racing we are going to try some hydroxyzine 50 mg daily. Hypertension restart losartan 50. [email or web address] Not available 06/09/2025 15:58:57 Plan of Treatment Reminders Order Date Submit Date Provider Last Modified By Organization Details Last Modified Time Details Appointments ANY 15 2025 02:30P M Alphonso Tran MD Not available Not available Not available Lab None recorded. Referral None recorded. Procedures None recorded. Surgeries None recorded. Imaging None recorded. Medication Orders losartan 50 mg tablet 2024 025 [email or web address] [id number], [address] [facility], [place], [place], [id number], 06/07/2025 18:06:17 Patient TargetsNo targets recorded. Patient Instructions Encounter Date Encounter Id Patient Instructions Last Modified By Organization Details Last Modified Time 06/07/2025 [id number] Quitting Tobacco : Care Instructions [email or web address] Not available 06/07/2025 18:06:17 A healthy lifestyle: care instructions [email or web address] Not available 06/07/2025 18:06:17 Reason for Referral None Reported. Problems Name Problem SNOMED Code Status Onset Date Resolution Date Notes Provider Name and Address Organization Details Recorded Time Essential hypertension 74094602 Active 2023 Kike [place], [place] [facility] 4 16:23:27 Low back pain 763337609 Active 2023 Kiek [place] [facility] 4 16:23:28 Tobacco dependence syndrome 79378704 Active 2023 Alphonso Tran MD Attn: John sanchez,[address] [place], [address], [place] [facility] 4 11:55:55 Testosterone level below reference range 837787304 Active 2023 Alphonso Tran MD Attn: Vivadeel sanchez,[address] [facility], [place], [address], [place] [facility] 4 11:55:56 Liver function tests outside reference range 098364545 Active 2023 Kike [place] [facility] 4 17:32:35 Hyperlipidemia 13715028 Active 2023 Kike [place] [facility] 4 17:32:37 Problem Notes None recorded. Procedures Surgical History Date Name Laterality Status Provider Name and Address Organization Details Recorded Time 05/19/20 23 Injection completed VINCENZO MOSES DPM [address] [place], [address], [place] [facility] 05/19/2023 14:49:29 03/16/20 23 Injection completed ALETHA TITUS, [place], [address], [place] [facility] 03/16/2023 15:13:43 02/03/20 23 Injection [place], [address], [place] [facility] 02/02/2023 15:52:59 12/31/19 23 Injection completed ALETHA TITUS, [place], [address], [place] [facility] 12/30/2022 16:20:43 12/17/19 23 Injection completed VINCENZO MOSES DPM [address] [place], [address], [place] 12/17/2022 12:55:34 extraction of cataract completed Carla Yuan [place] - [facility] 12/14/2023 15:06:28 tonsillectomy completed Carla Yuan [place] - [facility] 12/14/2023 15:06:18 Imaging Results None [...] Updated DateTime 5 185.42 cm 34.3 kg/m2 501919. 38 g 102 /min 97 % 150/92 mm[Hg] Robyn Mosley [place] - [facility] 5 14:42:53 Social History Question Answer Notes LastModified by Organizat ion Details LastModified Time Tobacco Smoking Status Current Every Day Smoker Carla Yuan, [facility], [place] - [facility] 12/14/2023 15:07:18 Do You Have [...] Do You Have A Medical Power Of Chemic Mangler? No Information not available 12/16/2022 What Was [...] ICD10 Code Diagnosis IMO Codes Diagnosis Note [id number] Alphonso Tran MD [facility] Venu Hoffmann [address] [place] [address] 06/07/2025 14:07:08 06/07/2025 15:36:06 Obese class I 4972204774 82540 E66.811 E66.3 4344740111 34.3 Smoker 16575411 F17.200 Essential hypertension 99412614 I10 Hyperlipidemia 21749809 E78.5 Anxiety 51711247 F41.9 99505 Health Concerns Section Related Observation LastModified by Organization Detai ls LastModified Time None Recorded Concern Status LastModified by Organization Details LastModified Time None Recorded Payers Encounter Date Sequence Insurance Name Policy Number Policy Umanzor Covered Member ID Umanzor Member ID Guarantor Name 06/07/2025 1 [place] [id number] Jhony Marinelli [id number] Jhony Marinelli Notes Date Note Type Note Provider Name and Address Organization Details Recorded Time 06/07/2025 text/html Dyslipidemia he is not taking anything for that right now sertraline he would like to get back on that he is having little of anxiety he is getting worked up for elevated LFTs but he is asymptomatic when he is having some problems with some erectile dysfunction Alphonso Tran MD Attn: Accounting,[address] [facility], [place], [address], [facility] - [facility] 06/09/2025 16:21:37
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
== END 2025-08-28 05:52 | disposition home or self-care (01) ==
PROVIDERS: Emergency Provider Student in an Organized Health Care Education/Training Program; PCP Internal Medicine
DX: T59.811A Toxic effect of smoke, accidental (unintentional), initial encounter (principal); F17.210 Nicotine dependence, cigarettes, uncomplicated; K74.60 Unspecified cirrhosis of liver; E78.5 Hyperlipidemia, unspecified; E66.9 Obesity, unspecified; Z68.34 Body mass index [BMI] 34.0-34.9, adult; Z86.0101 Personal history of adenomatous and serrated colon polyps
CPT/HCPCS: 71045; 99283